=== PATIENT | female | born 1985 | race Caucasian/White ===

== ENCOUNTER → 2017-03-12 | Outpatient (CLI) | payer MEDICAID ==
[~2017-03-12] MED LIST: AMOXICILLIN 50500 MG PO; BACTRIM DS 8001 TA1 PO; BACTRIM DS 8001 TAB PO; BUPRENORPHINE HY8 MG SL; BUTRANS10 MCG/HR TD; CIPRO 500MG TA500 MG PO; CIPROFLOXACIN500 MG PO; FLINTSTONES COM1 CTB PO; FLINTSTONES1 EACH PO; HYDROCODONE1 TABLET PO; IBUPROFEN200 MG PO; KEFLEX 500MG.500 MG PO; LORTAB 5/500 501 TAB PO; MACROBID100 M3 PO; METROGEL VA; MOTRIN 600MG.600 MG PO; NOMEDS; NOMEDS *; PAMPRIN OR; PHENERGAN 25MG.25 M1 PO; PHENERGAN25 M3 PO; PREDNISONE 10MG10 MG PO; PYRIDIUM 200MG200 MG PO; PYRIDIUM100 M2 PO; PYRIDIUM200 M2 PO; SEPTRA DS 800 M1 TAB PO; SUBOXONE 8 MG-21 TAB SL; SULFACETAMIDE S15 M1 OP; SULFAMETHOXAZOL1 TA6 PO; TYLENOL W/CODEI1 TA2 PO; TYLENOL325 MG PO; ULTRAM 50 MG TA50 MG PO; UTIRA-C TABLET1 TAB PO; VICODIN 5/500 T1 TAB PO; VOLTAREN75 MG PO; ZANTAC 150150 MG OR; ZOFRAN ODT4 MG PO; Zofran4 MG PO
--- NOTE | 2017-03-12 18:05 | RADIOLOGY REPORT PS360 ---
US PREG COMP: INDICATION: Anatomy scan ANATOMY OB US ORDERING PHYSICIAN: Yoni Smith MD PATIENT AGE: 31 years TECHNIQUE: ultrasound transabdominal scanning. COMPARISON: No previous relevant studies. FINDINGS: Single viable intrauterine gestation. Cephalic position. Placenta: Anterior placenta grade 1. No previa or abruption There is average amount fluid. The cervix appears satisfactory. Closed and measuring 3 cm in length. Complete survey performed and was unremarkable on the submitted images as in PACS. No discrete anomalies identified on survey imaging by technologist. Active fetus. Three-vessel cord with satisfactory umbilical cord insertion. 4- chamber heart noted. Survey of brain & ventricles. Face and neck survey unremarkable. Diaphragm and chest views unremarkable. Abdomen: Both kidneys noted and unremarkable. Stomach noted and satisfactory. Spine: Survey of the spine satisfactory with no anomalies identified nor imaged. Both arms and legs noted. Amniotic Fluid: Adequate. Maternal adnexa: No significant findings. Measurements: Average ultrasound age 20 weeks 4 days. Gestational Age 20 weeks 1 day. Estimated due date by ultrasound age 207/26/2017. Estimated weight 355 grams. 64 percentile BPD = 20 weeks 6 days OFD = 20 weeks 6 days HC = 20 weeks 1 day AC = 21 weeks 1 day FL = 19 weeks 6 days Heart Rate = not documented Cerebellum = 21 weeks 0 days Humerus = 20 weeks 3 days HC/AC is 1.10. CI is 79%. FL/BPD is 64%. FL/AC is 20%. IMPRESSION: There is a single live fetus in the cephalic presentation. No obvious anomalies. Average ultrasound age is 20 weeks 4 days. Please see above for detail.
== END ==
LOC: RAD 14:43
DX: Z36 Encounter for antenatal screening of mother (principal)

== ENCOUNTER → 2017-05-10 | Outpatient (CLI) | payer MEDICAID ==
[~2017-05-10] MED LIST changes: +FLINTSTONES CO1 EAC1 PO; +HYDROXYZINE 25M25 MG PO
--- NOTE | 2017-05-10 14:27 | RADIOLOGY REPORT PS360 ---
Biophysical profile US BIOPHYSICAL PROFILE: SD ratio INDICATION: DECREASED MOVEMENT ORDERING PHYSICIAN: Yoni Smith MD PATIENT AGE: 31 years TECHNIQUE: ultrasound transabdominal scanning. COMPARISON: 03/12/2017 FINDINGS: Limited scan for biophysical profile: Single viable intrauterine gestation. In Cephalic position Currently. Placenta: Anterior placenta grade 1. The cervix appears satisfactory. Closed and measuring 2.66 in length. Heart rate 102 bpm with raising included.. Cine loop included demonstrates four-chamber heart . The diaphragm identified Adequate amniotic fluid. . MARY = 13.22. Largest amniotic fluid pocket measuring 5.77 cm at the right lower quadrant BIOPHYSICAL PROFILE 8 of possible 8 points. movement and breathing observed 2+ scoring for each category: movement, tone, amniotic fluid, breathing. SD RATIO = 3.2 RI = 0.68Humerus = 21 weeks 4 days IMPRESSION: 8 of 8 points on Biophysical Profile. Cephalic position. Anterior placenta Adequate amniotic fluid with MARY = 13.22.
== END ==
LOC: RAD 13:00
DX: O36.8131 Decreased fetal movements, third trimester, fetus 1 (principal)

== ENCOUNTER 2017-05-14 19:41 | Outpatient (CLI) | payer MEDICAID ==
[~2017-05-14] VITALS: Ht 160 cm; Wt 58.1 kg
[~2017-05-14 19:41] MED LIST changes: -FLINTSTONES CO1 EAC1 PO; -HYDROXYZINE 25M25 MG PO
[2017-05-14 20:05] VITALS: BP 104/67
[2017-05-14] MEDS ORDERED: FLINTSTONES CO1 EAC1 PO (20:19)
[2017-05-14 21:01] LABS: URINE BILIRUBIN - DIPSTICK NEGATIVE (NEG); URINE BLOOD NEGATIVE (NEG)
[2017-05-14 21:27] LABS: AMPHETAMINES/METAMPHETAMINES NEGATIVE ng/mL (<1000)
--- NOTE | 2017-05-15 07:02 | RADIOLOGY REPORT PS360 ---
US PREG [id number] HISTORY: DECREASED MOVEMENT ORDERING PHYSICIAN: Chuy Covarrubias MD PATIENT AGE: 31 years COMPARISON: 05/10/2017 FINDINGS: Limited images submitted show no movement nor heart tones. IMPRESSION: Intrauterine demise
--- NOTE | 2017-05-15 07:02 | RADIOLOGY REPORT PS360 ---
US PREG [id number] HISTORY: DECREASED MOVEMENT ORDERING PHYSICIAN: Chuy Covarrubias MD PATIENT AGE: 31 years COMPARISON: 05/10/2017 FINDINGS: Limited images submitted show no movement nor heart tones. IMPRESSION: Intrauterine demise
[2017-05-20 06:35] LABS: Buprenorphine Positive (.); Norbuprenorphine Positive (.)
== END 2017-05-14 22:40 | disposition home or self-care (01) ==
LOC: OB 19:41 → OBOUT 19:41
PROVIDERS: Obstetrics & Gynecology
DX: O26.93 Pregnancy related conditions, unspecified, third trimester (principal); Z3A.29 29 weeks gestation of pregnancy; R10.2 Pelvic and perineal pain

== ENCOUNTER 2017-05-17 02:27 | Inpatient (IN) | payer MEDICAID ==
[~2017-05-17] VITALS: Ht 157.5 cm; Wt 57.3 kg
[~2017-05-17 02:27] MED LIST changes: +FLINTSTONES CO1 EAC1 PO
--- OUTSIDE RECORDS SUMMARY | 2017-05-17 02:34 | External Medical Summary Rpt | CCD ---
Author Author , MIRIAM Organization MIRIAM Address Unknown Phone [email or web address] Care Team Providers Care Service Representative Name Role Phone [facility] Unavailable Unavailable PHYSICIANS, [facility] Hernandez Downs MD, Unavailable Unavailable Hernandez Downs MD [facility] Unavailable Unavailable MEDICAL CTR, [facility] Unavailable Unavailable HOSPITAL, [facility] DANO ROSHNI, DANO Unavailable Unavailable ROSHNI PHYLICIA SANDERSON, Unavailable Unavailable [facility] Unavailable Unavailable [facility] BASIL ADHIKARI MD, Unavailable Unavailable BASIL ADHIKARI MD [facility] Unavailable Unavailable [facility], [facility]available [facility]available INC, [facility] Unavailable Unavailable [facility] Unavailable GROUP PS, [facility] Un[facility] Unavailable [facility], [facility] Unavailable Unavailable MEDICAL G, [facility], [facility] Unavailable Unavailable [facility]INGS, [facility] Tina Harris MD, Unavailable Unavailable Tina Harris MD, MD LABS, MD LABS Unavailable Unavailable [facility] Unavailable [facility]available [facility], [facility] WINTER OWEN MD, Unavailable Unavailable WINTER OWEN MD [facility] Unavailable Unavailable [facility], Unavailable Unavailable [facility], [facility] Un[facility], [facility] Unavailable Un[facility], [facility] SURINDER SMITH, Unavailable Unavailable SURINDER SMITH [facility] Un[facility] Un[facility], [facility] Unavailable Unavailable [facility] Un[facility] [facility] Purpose Continuity of Care Document - 07-15-2007 through 2016 Problems Code Diagnosis DOS Provider Status [id number] DRUG USE 04-10-2017 [facility] COMPLICATIN PHYSICIANS G GROUP UNS TRIMESTER Z3480 ENC 04-10-2017 [facility] SUPERVISION PHYSICIANS OTH NORMAL GROUP PREG UNS TRIMESTER Z36 ENCOUNTER 03-12-2017 [place] [facility] SCREENING OF MOTHER Z3A20 20 WEEKS 03-12-2017 [place] [facility]ATION [facility]ICAL OF IMAGING ASS Z113 ENCOUNTER 01-08-2017 [facility] S[facility]EN [facility] INFECTIONS SEXL MODE TRANSMISSN Z3481 ENC 01-08-2017 [facility] SUPERVISION [facility] OTH NORMAL 1 TRIMESTER N898 OTHER 01-02-2017 [facility] SPECIFIED [facility]YSICIANS, NONINFLAMMA PLLC TORY DISORDERS VAGINA O2691 01-02-2017 [facility] CONDITIONS INC UNS 1ST TRIMESTER R102 PELVIC AND 01-02-2017 [facility] PERINEAL PHYSICIANS, PAIN PLLC Z3A11 11 WEEKS 01-02-2017 [facility] GESTATION [facility] OF INC Z720 TOBACCO USE 01-02-2017 [facility] INC Q07077 UTERINE 12-14-2016 [facility] SIZE-DATE [facility] DISCREPANCY INC FIRST TRIMESTER Z3A01 LESS THAN 8 12-14-2016 [place] [facility] IM[facility] OF C88321 OTHER SPEC 12-13-2016 [facility] PHYSICIANS RELATED GROUP COND 1ST TRIMESTER O9989 OTH DZ & 12-13-2016 [facility] COND COMP PHYSICIANS, PREG PLLC CHILDBIRTH PUERPERIUM R55 SYNCOPE AND 12-13-2016 [facility] COLLAPSE PHYSICIANS, PLLC R110 NAUSEA 12-08-2016 [facility], PLLC R51 HEADACHE 12-08-2016 [facility], [facility] Z32.01 ENCOUNTER 12-03-2016 FOR TEST, RESULT POSITIVE T81048Q LACERATION 12-01-2016 [facility] W/O FOREIGN [facility] BODY RT INC FOOT INITIAL ENC Z3201 ENCOUNTER 11-28-2016 [place] [facility] TEST RESULT POSITIVE B070 PLANTAR 11-02-2016 [facility] WART PHYSICIANS GROUP B370 CANDIDAL 11-02-2016 [facility] STOMATITIS PHYSICIANS GROUP K029 DENTAL 10-13-2016 [facility] UNSPECIFIED INC K047 PERIAPICAL 10-13-2016 [facility] ABSCESS PHYSICIANS, WITHOUT PLLC SINUS Y43228 AGGRESSIVE 10-13-2016 [facility] PERIODONTIT [facility] IS INC LOCALIZED UNSPEC SEV N3000 ACUTE 09-30-2016 [facility] CYSTITIS PHYSICIANS, WITHOUT PLLC HEMATURIA N390 URINARY 09-30-2016 [facility] TRACT PHYSICIANS, INFECTION PLLC SITE NOT SPECIFIED B9620 UNS E COLI 07-23-2016 [facility] E. COLI PHYSICIANS, CAUSE DZ PLLC CLASS ELSEWHERE B1920 UNS VIRAL 03-26-2016 [facility] HEPATITIS C HEALTH WITHOUT MEDICAL G HEPATIC COMA N3020 OTHER 03-26-2016 [facility] CHRONIC HEALTH CYSTITIS MEDICAL G WITHOUT HEMATURIA N341 NONSPECIFIC 03-26-2016 [facility] URETHRITIS HEALTH MEDICAL G N3644 MUSCULAR 03-26-2016 [facility] DISORDERS HEALTH OF URETHRA MEDICAL G B379 CANDIDIASIS 02-23-2016 [facility] UNSPECIFIED LAB LLC N281 CYST OF 02-21-2016 [facility] N3090 CYSTITIS 02-21-2016 [place] UNSPECIFIED MEDICAL WITHOUT IMAGING ASS HEMATURIA R1084 GENERALIZED 12-18-2015 [facility] ABDOMINAL N [facility]ERGENCY PAIN SERV R197 DIARRHEA 12-18-2015 [facility] UNSPECIFIED N EMERGENCY SERV Z5181 ENCOUNTER 12-14-2015 MD LAB[facility] FOR THERAPEUTIC DRUG LEVEL MONITORING M46514 OTHER LONG 12-14-2015 MD LABS TERM CURRENT DRUG THERAPY B182 CHRONIC 12-07-2015 DANO ROSHNI VIRAL HEPATITIS C Z392 ENCOUNTER 11-16-2015 LAB [facility] FOR ROUTINE [facility] FOLLOW-UP O623 PRECIPITATE 09-28-2015 [facility] LABOR [facility] [place] O80 ENCOUNTER 09-28-2015 [place] [facility] FULL-TERM GROUP PS UNCOMPLICAT ED DELIVERY Z370 SINGLE LIVE 09-28-2015 [place] [facility] PS Z3A38 38 WEEKS 09-28-2015 [facility] GESTATION [facility] OF HEALTH CENTE C08411 SUP PREG 09-26-2015 [facility] W/OTH POOR [facility] REPRODUCTIV HEALTH E/OB HX 1ST CENTE TRI R300 DYSURIA 09-26-2015 [facility] Z3483 ENC 09-26-2015 LAB [facility] SUPERVISION [facility] OT NORMAL HOLDINGS 3 TRIMESTER Z3A37 37 WEEKS 09-26-2015 LAB [facility] GESTATION [facility] OF HOLDINGS O218 OTHER 09-23-2015 [facility] VOMITING [facility] COMPLICATIN HEALTH G CENTE O2393 UNS 09-23-2015 [facility] GENITOURINA [facility] RY TRACT HEALTH INF PREG CENTE THIRD TRIMESTER O6003 09-23-2015 [facility] LABOR [facility] WITHOUT HEALTH DELIVERY CENTE THIRD TRIMESTER K529 NONINFECTIV 09-22-2015 [facility] ITIS & COLITIS UNS O2340 UNS INF 09-22-2015 [facility] URINARY REGIONAL TRACT IN MEDICAL CTR UNS TRIMESTER O2693 09-22-2015 [facility] RELATED REG[facility]AL CONDITIONS MEDICAL CTR UNS 3RD TRIMESTER O4703 FALSE LABOR 09-22-2015 [facility] BEFORE [facility] REGIONAL CMPLETE MEDICAL CTR WEEKS GEST 3RD TRI [id number] OLIGOHYDRAM 09-19-2015 [facility] NIOS REGIONAL UNSPECIFIED MEDICAL CTR TRIMESTER NA/UNS [id number] OLIGOHYDRAM 09-19-2015 [facility] TRIMESTER HEALTH NA/UNS CENTE Z3A36 36 WEEKS 09-19-2015 [facility]ATION [facility] CENTE F533507 DECREASED 09-14-2015 [facility] MOVEMENTS MEDICAL CTR UNS TRIMESTER NA/UNS O41503 SUP PREG 09-08-2015 [facility] W/OTH POOR REGIONAL REPRODUCTIV MEDICAL CTR E/OB HX UNS TRI Z3A35 35 WEEKS 09-08-2015 [facility] GESTATION [facility] CENTE Z13705 DRUG USE 08-29-2015 [facility] COMPLICATIN PHYSICIANS G GROUP THIRD TRIMESTER M20833 SUP PREG 08-24-2015 [facility] W/OTH POOR SERV REPRODUCTIV FOUNDATION E/OB HX THIRD TRI Z3A33 33 WEEKS 08-24-2015 [facility] GESTATION SERV OF FOUNDATION D6861 ANTIPHOSPHO 07-27-2015 [facility] MEDICAL LIPID SERV SYNDROME FOUNDATION Z3A29 29 WEEKS 07-27-2015 [facility] GESTATION SERV OF FOUNDATION D689 COAGULATION 07-24-2015 [facility] DEFECT N EMERGENCY UNSPECIFIED PHYS G55085 OTH DZ 07-24-2015 [facility] BLOOD & BFO N EMERGENCY IMMUN MECH PHYS COMP PREG 3RD TRI Z3A32 32 WEEKS 07-24-2015 [facility] GESTATION N EMERGENCY OF PHYS C604152 DECREASED 06-25-2015 [facility] MOVEMENTS INC SECOND TRI NA/UNS Z3A24 24 WEEKS 06-25-2015 [facility] GESTATION MEM HOS[facility] OF INC O471 FALSE LABOR 05-20-2015 BASIL Pineda AT/AFTER ZEYNEP HUANG 37 COMPLETED WEEKS GEST K65957 ATYP SQ 05-04-2015 [facility] HOSPI SIGNIFICANC E CYTOL SMER CERV Z779 OTH CONTACT 05-04-2015 [facility] SUSPECTED HOSPI EXPOSURES [facility] 72097 UNSPECIFIED 03-08-2015 [facility] N 5990 URINARY 03-06-2015 [facility] TRACT [facility] INFECTION SITE NOT SPECIFIED 59365 MILD 03-06-2015 [facility] HYPEREMESIS CARE [facility] PHYSICIANS ANTEPARTUM 62479 INFECTIONS 03-06-2015 [facility] GENITOURINA RY TRACT ANTEPARTUM 04721 TOB USE D/O 03-06-2015 [facility] COMP PG EAST /PP ANTEPARTM COND/COMP 03259 TRICHOMONAL 02-17-2015 [facility] VULVOVAGINI TIS V221 SUPERVISION 02-17-2015 [facility] OF OTHER LLC NORMAL V745 SCREENING 02-17-2015 [facility] EXAMINATION LLC FOR VENEREAL DISEASE 83311 ABDOMINAL 02-07-2015 [facility] PAIN OTHER MEM HOS[facility] SPECIFIED INC SITE 31304 OTH&UNS ABN 02-04-2015 [facility] ORGN&PELVIS IMAGING ASS ANTPRTM COND/COMPL 97944 ABDOMINAL 01-27-2015 [facility] PAIN, MEM [facility]OS[facility] GENERALIZED INC 1120 CANDIDIASIS 04-02-2014 [facility] 6202 OTHER AND 03-08-2014 BAS[facility] Pineda UNSPECIFIED ZEYNEP HUANG OVARIAN CYST 6268 OTH D/O 03-08-2014 BAS[facility] Pineda MENSTRUATIO ZEYNEP HUANG N&OTH ABN BLEED FE GNT TRACT V7231 ROUTINE 03-08-2014 BAS[facility] Pineda GYNECOLOGIC ZEYNEP HUANG AL EXAMINATION 305.1 305.1 05-15-2013 [place] TOBACCO USE [facility] 599.0 599.0 URIN 05-15-2013 [place] TRACT [place] [facility] NOS 780.4 780.4 03-22-2013 [place] DIZZINESS, [facility] VERTIGO 784.0 784.0 03-22-2013 [place] HEADACHE [facility] 845.00 845.00 03-07-2013 [place] SPRAIN OF [place] ANKLE [facility] E849.8 E849.8 03-07-2013 [place] ACCIDENT IN [facility] E927.0 E927.0 03-07-2013 [place] OVEREXERTIO [facility] FROM [facility] SUDDEN STRENUOUS MOVEMENT V64.2 V64.2 NO 12-23-2012 [place] PROC[facility] 6253 DYSMENORRHE 08-11-2007 [facility] [place] 6259 UNSPEC 08-11-2007 [facility]OM[facility] SYMPTOM HEALTH ASSOC CLINIC OF W/FEMALE [place] [facility]ITAL [facility] ORGANS 6264 IRREGULAR 08-04-2007 WOMEN'S MENSTRUAL HEALTH CYCLE [facility] [place] [facility] V692 PROBLEMS 08-04-2007 WOMEN'S RELATED TO HEALTH HIGH-RISK CLINIC OF SEXUAL [place] [facility] 58951 NONSPEC 07-21-2007 [facility] ABNORM PAP [place] INC CERV UNSATISFACT ORY CYTOLOGY V251 ENCOUNTER 07-21-2007 WOMEN'S INSERT/BIN HEALTH EB IU CLINIC OF CONTRACEPTI [place] VE DEVICE [facility] 86321 PAP SMER 07-15-2007 WOMEN'S CERV HEALTH W/ATYPICAL CLINIC OF SQUAMOUS [place] CELLS UNDET [facility] 18325 CERV HIGH 07-15-2007 WOMEN'S RISK HUMAN HEALTH PAPILLOMAVI CLIN[facility] OF [place] DNA [place] TEST POS [facility] V242 ROUTINE 07-15-2007 [facility] [place] INC FOLLOW-UP K52.9 NONINFECTIV E GASTROENTER ITIS AND COLITIS, UNSPECIFIED N39.0 URINARY TRACT INFECTION, SITE NOT SPECIFIED N89.8 OTHER SPECIFIED NONINFLAMMA TORY DISORDERS OF VAGINA R10.2 PELVIC AND PERINEAL PAIN R55 SYNCOPE AND COLLAPSE Z33.1 STATE, INCIDENTAL Z34.90 ENCNTR FOR SUPRVSN OF NORMAL , UNSP, UNSP TRIMESTER Allergies, Adverse Reactions, Alerts Type Allergy to substance Adverse Reaction to Substance Substance Reaction Severity NO KNOWN ALLERGIES Unknown Unknown Medications Na ND Rx Da Fi Fi Am Da Di Ph RX Ph St me C No te ll ll ou ys ag ar # ys at rm s nt no ma ic us Or Da si cy ia de te s n re d EN 00 10 11 8. 20 00 EA Ac OX 95 -1 -[address] ti AP 51 5- 7- 0 00 SI ve AR 00 20 20 50 DE IN 41 17 17 42 0 62 PH 40 AR MA MG CY /0 .4 OF CY ML NT HI SY AN R A IN C EN 00 10 11 4. 10 00 EA Ac OX 95 -0 -[address] ti AP 51 6- 0- 0 00 SI ve AR 00 20 20 50 DE IN 41 17 17 42 0 62 PH 40 AR MA MG CY /0 .4 OF CY ML NT HI SY AN R A IN C EN 00 09 10 4. 10 00 EA Ac OX 95 -2 -[address] ti AP 51 5- 7- 0 00 SI ve AR 00 20 20 50 DE IN 41 17 17 28 0 60 PH 40 AR MA MG CY /0 .4 OF CY ML NT HI SY AN R A IN C FE 57 09 10 30 30 00 EA Ac RR 66 -1 -[address] ti OU 40 9- 0- 00 00 SI ve S 07 20 20 50 DE ABREU 01 17 17 22 LF 0 39 PH AT AR E MA 32 CY 5 MG OF CY TA NT BL HI ET AN A IN C TE 51 08 09 20 3 00 EA Ac RC 67 -2 -[address] ti ON 21 2- 2- 00 00 SI ve AZ 30 20 20 49 DE OL 20 17 17 88 E 0 82 PH 0. AR 8% MA CY CR EA OF M CY NT HI AN A IN C NE 65 06 07 14 4 00 EA Ac OM 16 -1 -[address] ti ET 20 8- 1- 00 00 SI ve FOSS 52 20 20 49 DE ZI 11 17 17 16 NE 1 65 PH AR 25 MA CY MG OF TA CY BL NT ET HI AN A IN C NY 00 05 06 [address] 60 -1 -[address] ti AT 31 2- 6- 00 00 SI ve IN 48 20 20 0 48 DE 15 17 17 72 10 8 86 PH 0, AR 00 MA 0 CY UN IT OF /M CY L NT ABREU HI SP AN A IN C BU 00 04 05 3. 1 00 CL Ac NE 09 -1 -1 00 00 IN ti EN 35 7- 9- 0 00 IC ve OR 72 20 20 42 PH 15 17 17 79 PH IN 6 70 AR -N MA AL CY OX ON 8- 2 MG SL BU 00 04 05 3. 1 00 CL Ac NE 09 -0 -1 00 00 IN ti EN 35 7- 2- 0 00 IC ve OR 72 20 20 42 PH 15 17 17 72 PH IN 6 09 AR -N MA AL CY OX ON 8- 2 MG SL ABREU 53 04 05 20 10 00 CL Ac LF 74 -1 -1 .0 00 IN ti AM 60 0- 2- 00 00 IC ve ET 27 20 20 42 HO 20 17 17 75 PH XA 5 65 AR ZO MA LE CY -T MP DS TA BL ET CI 16 01 03 14 7 00 EA Ac NE 71 -3 -[address] ti OF 40 1- 3- 00 00 SI ve LO 65 20 20 47 DE XA 20 17 17 43 CI 4 63 PH N AR HC MA L CY 50 0 OF MG CY NT TA HI B AN A IN C PH 42 01 03 10 3 00 EA Ac EN 93 -3 -[address] ti AZ 70 1- 3- 00 00 SI ve OP 70 20 20 47 DE YR 21 17 17 43 ID 0 62 PH IN AR E MA 20 CY 0 MG OF CY TA NT B HI AN A IN C SO 00 09 0 No DI 40 -2 UM 97 9- Lo 98 20 ng CH 30 13 er LO 9 RI Ac DE ti ve 0. 9% SO ALIA TI ON ON 00 09 0 No DA 64 -2 NS 16 9- Lo ET 08 20 ng RO 02 13 er N 5 HC Ac L ti 4 ve MG /2 ML AL BU 55 09 0 No TO 39 -2 RP 00 9- Lo FOSS 18 20 ng NO 40 13 er L 1 2 Ac MG ti /M ve L AL KE 00 09 0 No TO 40 -1 RO 93 4- Lo LA 79 20 ng C 50 13 er 30 1 Ac MG ti /M ve L AL 00 02 03 00 20 4 CL 16 No Ac 40 -1 -2 .0 IN 46 t ti 60 1- 6- 00 IC 17 Av ve 35 20 20 ai 70 08 08 PH la 5 AR bl MA e CY 00 02 03 00 60 30 CL 16 No Ac 14 -1 -2 .0 IN 46 t ti 39 1- 6- 00 IC 14 Av ve 90 20 20 ai 80 08 08 PH la 1 AR bl MA e CY 00 02 03 00 20 4 CL 16 No Ac 40 -1 -2 .0 IN 51 t ti 60 8- 6- 00 IC 41 Av ve 35 20 20 ai 70 08 08 PH la 5 AR bl MA e CY DO 00 02 03 00 28 14 CL 16 No Ac XY 59 -1 -2 .0 IN 46 t ti CY 15 1- 6- 00 IC 15 Av ve CL 44 20 20 ai IN 00 08 08 PH la E 5 AR bl HY MA e CL CY AT E 10 0 MG CA P [place] 50 01 03 00 1. 1 TH 19 No Ac RE 41 -1 -2 00 ER 85 t ti NA 90 1- 4- 0 A 82 Av ve 42 20 20 CO 1 ai SY [address] 1 IN bl EM C e Vital Signs 03-22-2013 15:42 Name Value Interpretat Reference Comment ion Range BP 88 mm[Hg] Diastolic BP Systolic 126 mm[Hg] Heart 60 /min Rate/Pulse O2% 100 % Respiratory 18 /min Rate 03-22-2013 14:00 Name Value Interpretat Reference Comment ion Range BP 89 mm[Hg] Diastolic BP Systolic 142 mm[Hg] Heart 60 /min Rate/Pulse O2% 100 % Respiratory 18 /min Rate 03-07-2013 11:46 Name Value Interpretat Reference Comment ion Range Body 98.3 [degF] Temperature BP 69 mm[Hg] Diastolic BP Systolic 114 mm[Hg] Heart 72 /min Rate/Pulse O2% 97 % Respiratory 18 /min Rate 03-07-2013 11:17 Name Value Interpretat Reference Comment ion Range BP 67 mm[Hg] Diastolic BP Systolic 113 mm[Hg] Heart 70 /min Rate/Pulse O2% 97 % Respiratory 20 /min Rate Results Labs Lab Lab Date Result Refere Interp Status Commen Order Detail nces retati t Range on Urine 9-analyte drugs of abuse screening (05-14-2017 19:50) Comment: Collected by nurse? Y Comment: Hold specimen in OE? N Comment: Positive urine drug screen samples are stored for 7 days. Comment: Contact the Lab if confirmation of positives is needed. Urine NEGATIV <1000 complet ampheta 017 E ed mine 19:50 NEGATIV screeni E L ng test ng/mL Serum = 200 complet or 017 NEGATIV ng/mL ed plasma 19:50 E ng/mL benzodi azepine s measure m Methado = <300 complet ne 017 NEGATIV ed measure 19:50 E ng/mL ment (mass/v olume) Opiates = <300 complet 017 NEGATIV ed measure 19:50 E ng/mL ment (mass/v olume) Phencyc = <25 complet lidine 017 NEGATIV ed measure 19:50 E ng/mL ment (mass/v olume) 11-hydr NEGATIV <50 complet oxy 017 E ed delta-9 19:50 NEGATIV E L tetrahy ng/mL drocann abinol Urine = <200 complet barbitu 017 NEGATIV ed rates 19:50 E ng/mL measure ment by screen Cocaine = <300 complet 017 NEGATIV ed measure 19:50 E ng/g ment (mass/v olume) Urinalysis with microscopy (05-14-2017 19:50) Comment: Collected by nurse? Y Comment: Hold specimen in OE? N Urine CLEAR CLEAR complet appeara 017 CLEAR L ed nce 19:50 determi nation Amorpho 1+ 1+ L NONE complet us 017 ed sedimen 19:50 t detecti on in urine se Bacteri 1+ 1+ L O complet a 017 ed detecti 19:50 on in urine sedimen t by Urine NEGATIV NEG complet total 017 E ed bilirub 19:50 NEGATIV in E L detecti on by test Urine NEGATIV NEG complet blood 017 E ed detecti 19:50 NEGATIV on E L Urine DK YELLOW complet color 017 YELLOW ed 19:50 DK YELLOW L Glucose = NEG complet ur 017 NEGATIV ed test 19:50 E strip Urine NEGATIV NEG complet ketones 017 E ed 19:50 NEGATIV detecti E L on by mg/dL automat ed merlyn Mucus NEGATIV NEG complet detecti 017 E ed on in 19:50 NEGATIV urine E L sedimen t by lig Urine NEGATIV NEG complet nitrite 017 E ed 19:50 NEGATIV detecti E L on by test strip Urine 2 = 7.0 5.0-8.5 complet pH 017 ed 19:50 Urine 05-14- = NEG complet protein 017 NEGATIV ed 19:50 E mg/dL measure ment by automat ed t Erythro 05-14-2 NONE 0 complet cytes 017 NONE L ed detecti 19:50 rbc/hpf on in urine sedimen t Urine 05-14-2 = 1.025 1.005-1 complet specifi 017 .030 ed c 19:50 gravity measure ment Squ[place]ou 05-14-2 5-10 0-5 complet s 017 5-10 L ed epithel 19:50 #/hpf ial cells detecti on in u Urine 1.0 1.0 NEG complet urobili 017 L ed nogen 19:50 E.U./dL detecti on by test str Urine 3 - 5 O complet leukocy 017 wbc/hpf ed merlyn 19:50 count (number /volume ) Urinalysis dipstick W Reflex Microscopic panel in Urine (05-14-2017 19:50) Amorpho 1+ NONE complet us 017 ed sedimen 19:50 t [Presen ce] in Urine sedimen t by Light microsc opy Bacteri 1+ O complet a 017 ed [Presen 19:50 ce] in Urine sedimen t by Light microsc opy Erythro NONE 0 complet cytes 017 ed [Presen 19:50 ce] in Urine sedimen t by Light microsc opy Epithel 5-10 0#/hp complet ial 017 f - ed cells.s 19:50 5#/hp quamous f [Presen ce] in Urine sedimen t by Microsc opy high power field Leukocy 3-5 O complet merlyn 017 wbc/hpf ed [#/volu 19:50 me] in Urine Drugs identified in Urine by Screen method (05-14-2017 19:50) Ampheta NEGATIV <1000 complet mine 017 E ed [Presen 19:50 ce] in Urine by Screen method NEGATIV <50 complet oxy 017 E ed delta-9 19:50 tetrahy drocann abinol [Presen ce] in Unspeci fied specime n Urinalysis dipstick W Reflex Microscopic panel in Urine (05-14-2017 19:50) Appeara CLEAR CLEAR complet nce of 017 ed Urine 19:50 Bilirub NEGATIV NEG complet in 017 E ed [Presen 19:50 ce] in Urine by Test strip Erythro NEGATIV NEG complet cytes 017 E ed [Presen 19:50 ce] in Urine Color DK YELLOW complet of 017 YELLOW ed Urine 19:50 Ketones NEGATIV NEG complet 017 E ed [Presen 19:50 ce] in Urine by Automat ed test strip Mucus NEGATIV NEG complet [Presen 017 E ed ce] in 19:50 Urine sedimen t by Light microsc opy Nitrite NEGATIV NEG complet 017 E ed [Presen 19:50 ce] in Urine by Test strip Urobili 05-14- 1.0 NEG complet nogen 017 ed [Presen 19:50 ce] in Urine by Test strip Urinalysis dipstick W Reflex Microscopic panel in Urine (01-02-2017 13:40) Bacteri 2+ O complet a 017 ed [Presen 13:40 ce] in Urine sedimen t by Light microsc opy Epithel 5-10 0#/hp complet ial 017 f - ed cells.s 13:40 5#/hp quamous f [Presen ce] in Urine sedimen t by Microsc opy high power field Leukocy 5-10 O complet merlyn 017 wbc/hpf ed [#/volu 13:40 me] in Urine Urinalysis dipstick W Reflex Microscopic panel in Urine (01-02-2017 13:40) Appeara CLEAR CLEAR complet nce of 017 ed Urine 13:40 Bilirub NEGATIV NEG complet in 017 E ed [Presen 13:40 ce] in Urine by Test strip Erythro NEGATIV NEG complet cytes 017 E ed [Presen 13:40 ce] in Urine Color YELLOW YELLOW complet of 017 ed Urine 13:40 Ketones NEGATIV NEG complet 017 E ed [Presen 13:40 ce] in Urine by Automat ed test strip Mucus TRACE NEG Abnorma complet [Presen 017 l ed ce] in 13:40 Urine sedimen t by Light microsc opy Nitrite NEGATIV NEG complet 017 E ed [Presen 13:40 ce] in Urine by Test strip Urobili 0.2 NEG complet nogen 017 ed [Presen 13:40 ce] in Urine by Test strip Urinalysis dipstick W Reflex Microscopic panel in Urine (12-13-2016 15:40) Bacteri 2+ O complet a 017 ed [Presen 15:40 ce] in Urine sedimen t by Light microsc opy Mucus 12-13-2 2+ OCC complet [Presen 017 ed ce] in 15:40 Urine sedimen t by Light microsc opy Epithel 12-13-2 5-10 0#/hp complet ial 017 f - ed cells.s 15:40 5#/hp quamous f [Presen ce] in Urine sedimen t by Microsc opy high power field Leukocy 12-13- 5-10 O complet merlyn 017 wbc/hpf ed [#/volu 15:40 me] in Urine Urinalysis dipstick W Reflex Microscopic panel in Urine (12-13-2016 15:40) Appeara CLEAR CLEAR complet nce of 017 ed Urine 15:40 Bilirub NEGATIV NEG complet in 017 E ed [Presen 15:40 ce] in Urine by Test strip Erythro NEGATIV NEG complet cytes 017 E ed [Presen 15:40 ce] in Urine Color YELLOW YELLOW complet of 017 ed Urine 15:40 Ketones NEGATIV NEG complet 017 E ed [Presen 15:40 ce] in Urine by Automat ed test strip Mucus 1+ NEG Abnorma complet [Presen 017 l ed ce] in 15:40 Urine sedimen t by Light microsc opy Nitrite NEGATIV NEG complet 017 E ed [Presen 15:40 ce] in Urine by Test strip Urobili 12-13-2 1.0 NEG complet nogen 017 ed [Presen 15:40 ce] in Urine by Test strip Drugs identified in Urine by Screen method (12-13-2016 15:40) Ampheta 12-13-2 NEGATIV <1000 complet mine 017 E ed [Presen 15:40 ce] in Urine by Screen method 11-Hydr 12-13- NEGATIV <50 complet oxy 017 E ed delta-9 15:40 tetrahy drocann abinol [Presen ce] in Unspeci fied specime n Blood group antibody screen [Presence] in Serum or Plasma (12-04-2016 15:16) Blood NEGATIV NEGATIV complet group 017 E E ed antibod 15:16 y screen [Presen ce] in Serum or Plasma Rh [Type] in Blood (12-04-2016 15:16) Rh POSITIV complet [Type] 017 E ed in 15:16 Blood ABO group [Type] in Blood (12-04-2016 15:16) ABO AB complet group 017 ed [Type] 15:16 in Blood B-HCG Ur Ql (05-15-2013 11:30) B-HCG 05-15-2 NEGATIV NEG complet Ur Ql 013 E ed 11:30 URINALYSIS/COMPLETE (05-15-2013 11:30) URINE 05-15-2 YELLOW YELLOW complet COLOR 013 ed 11:30 URINE 05-15-2 CLOUDY CLEAR complet APPEARA 013 ed NCE 11:30 URINE 05-15-2 NEGATIV NEG complet GLUCOSE 013 E ed - 11:30 DIPSTIC K URINE 05-15-2 1+ NEG complet BILIRUB 013 ed IN - 11:30 DIPSTIC K URINE 05-15-2 TRACE NEG complet KETONE 013 mg/dL ed 11:30 URINE 05-15-2 1.025 1.005-1 complet SPECIFI 013 UNK .030 ed C 11:30 GRAVITY URINE 05-15-2 NEGATIV NEG complet BLOOD 013 E ed 11:30 URINE 05-15-2 6.0 UNK 5.0-8.5 complet PH 013 ed 11:30 URINE 05-15-2 NEGATIV NEG complet PROTEIN 013 E mg/dL ed - 11:30 DIPSTIC K URINE 05-15-2 1.0 NEG complet UROBILI 013 E.U./dL ed NOGEN - 11:30 DIPSTIC K URINE 05-15-2 NEGATIV NEG complet NITRATE 013 E ed - 11:30 DIPSTIC K URINE 05-15-2 2+ NEG complet LEUK 013 ed ESTERAS 11:30 E URINE 11-22-2 5-10 0 complet RBC 013 rbc/hpf ed 11:30 URINE --2 5-10 O complet WBC 013 wbc/hpf ed 11:30 URINE 11-22-2 20-50 0-5 complet SQUAMOU 013 #/hpf ed S CELLS 11:30 URINE 05-15-2 2+ O complet BACTERI 013 ed A 11:30 URINE 05-15-2 2+ OCC complet MUCUS 013 ed 11:30 COMPREHENSIVE METABOLIC PANEL (03-22-2013 13:45) Glucose 118 74-106 complet 013 mg/dL ed Bld-mCn 13:45 c BUN 7 mg/dL 7-18 complet Bld-mCn 013 ed c 13:45 Creat 0.8 0.6-1.0 complet SerPl-m 013 mg/dL ed Cnc 13:45 ESTIMAT 106 50-200 complet ED 013 ML/MIN ed CREATIN 13:45 INE CLEARAN CE GFR 86 59- complet (ESTIMA 013 ML/MIN ed KATHERINE) 13:45 Sodium 139 136-145 complet SerPl-s 013 mmoL/L ed Cnc 13:45 Potassi 3.5 3.5-5.1 complet um 013 mmoL/L ed SerPl-s 13:45 Cnc Chlorid 102 98-107 complet e 013 mmoL/L ed SerPl-s 13:45 Cnc CO2 03-22- 28 21.0-32 complet SerPl-s 013 mmoL/L .0 ed Cnc 13:45 Calcium 8.8 8.5-10. complet 013 mg/dL 1 ed SerPl-m 13:45 Cnc Prot 03-22- 7.4 6.4-8.2 complet SerPl-m 013 gm/dL ed Cnc 13:45 Albumin 03-22-2 3.6 3.4-5.0 complet 013 gm/dL ed SerPl-m 13:45 Cnc Globuli 03-22-2 3.8 1.3-3.2 complet n 013 gm/dL ed Ser-mCn 13:45 c Albumin 03-22-2 0.9 UNK 1.1-1.8 complet /Glob 013 ed SerPl-m 13:45 Rto Bilirub 03-22-2 0.2 0.2-1.0 complet 013 mg/dL ed SerPl-m 13:45 Cnc AST 09-29-2 34 U/L 15-37 complet SerPl-c 013 ed Cnc 13:45 ALT 03-22-2 70 U/L 30-65 complet SerPl-c 013 ed Cnc 13:45 ALP 03-22-2 108 U/L 50-136 complet SerPl-c 013 ed Cnc 13:45 CBC with AUTO DIFF (03-22-2013 13:45) WBC # -29-2 4.5 4.8-10. complet Bld 013 K/MM3 8 ed Auto 13:45 RBC # 29-2 4.44 4.2-5.4 complet Bld 013 M/mm3 ed Auto 13:45 Hgb 03-22-2 14.6 12.2-16 complet Bld-mCn 013 g/dL .2 ed c 13:45 Hct Fr 03-22-2 42.5 % 37.0-47 complet Bld 013 .0 ed 13:45 MCV RBC 03-22-2 95.7 fl 82.2-97 complet 013 .8 ed 13:45 MCH RBC 03-22-2 33.0 pg 27-31.2 complet Qn 013 ed Auto 13:45 MEAN 03-22-2 34.4 31.8-35 complet CORPUSC 013 g/dl .4 ed ULAR 13:45 HGB CONC RDW RBC 03-22-2 14.1 % 11.5-17 complet Auto 013 .5 ed 13:45 Platele -29-2 209 142-424 complet t Bld 013 K/mm3 ed Ql 13:45 Manual MEAN 03-22-2 8.0 fl 7.4-10. complet PLATELE 013 4 ed T 13:45 VOLUME Granulo 03-22-2 38.5 % 37.0-80 complet cytes 013 .0 ed Fr Bld 13:45 Auto LYMPH % 03-22-2 51.0 % 10-50.0 complet 013 ed 13:45 Monocyt -29-2 5.5 % 1.7-9.3 complet es Fr 013 ed Bld 13:45 Auto Eosinop -29-2 4.1 % 0.1-12. complet hil Fr 013 0 ed Bld 13:45 Auto Basophi -29-2 0.9 % 0.1-2.0 complet ls Fr 013 ed Bld 13:45 Auto Granulo -29-2 1.7 1.8-7.8 complet cytes # 013 K/mm3 ed Bld 13:45 Auto Lymphoc --2 2.3 0.7-4.5 complet ytes Fr 013 K/mm3 ed Bld 13:45 Auto Monocyt 29-2 0.3 0.1-1.0 complet es # 013 K/mm3 ed Bld 13:45 Auto Eosinop --2 0.2 0.0-0.4 complet hil # 013 K/mm3 ed Bld 13:45 Auto Basophi 03-22-2 0.0 0-0.2 complet ls # 013 K/MM3 ed Bld 13:45 Auto B-HCG Ur Ql (03-22-2013 13:40) B-HCG 03-22-2 NEGATIV NEG complet Ur Ql 013 E ed 13:40 URINALYSIS/COMPLETE (03-22-2013 13:40) URINE 03-22-2 YELLOW YELLOW complet COLOR 013 ed 13:40 URINE 03-22-2 CLEAR CLEAR complet APPEARA 013 ed NCE 13:40 URINE 03-22-2 NEGATIV NEG complet GLUCOSE 013 E ed - 13:40 DIPSTIC K URINE 03-22-2 NEGATIV NEG complet BILIRUB 013 E ed IN - 13:40 DIPSTIC K URINE 03-22-2 NEGATIV NEG complet KETONE 013 E mg/dL ed 13:40 URINE 03-22-2 1.015 1.005-1 complet SPECIFI 013 UNK .030 ed C 13:40 GRAVITY URINE 03-22-2 NEGATIV NEG complet BLOOD 013 E ed 13:40 URINE 03-22-2 7.0 UNK 5.0-8.5 complet PH 013 ed 13:40 URINE 03-22-2 NEGATIV NEG complet PROTEIN 013 E mg/dL ed - 13:40 DIPSTIC K URINE 03-22-2 0.2 NEG complet UROBILI 013 E.U./dL ed NOGEN - 13:40 DIPSTIC K URINE --2 NEGATIV NEG complet NITRATE 013 E ed - 13:40 DIPSTIC K URINE 03-22-2 NEGATIV NEG complet LEUK 013 E ed ESTERAS 13:40 E URINE 03-22-2 OCC 0 complet RBC 013 rbc/hpf ed 13:40 URINE 03-22-2 3-5 O complet WBC 013 wbc/hpf ed 13:40 URINE 5-10 0-5 complet SQUAMOU 013 #/hpf ed S CELLS 13:40 URINE 2+ O complet BACTERI 013 ed A 13:40 B-HCG Ur Ql (03-07-2013 10:30) B-HCG NEGATIV NEG complet Ur Ql 013 E ed 10:30 CHLAMYDIA AND GONORRHEA TESTING (09-30-2012 15:00) Chlamyd CANCEL complet ia 013 ed trachom 15:00 atis rRNA [Presen ce] in Unspeci fied specime n by Probe & target amplifi cation method Neisser CANCEL complet ia 013 ed gonorrh 15:00 oeae rRNA [Presen ce] in Unspeci fied specime n by Probe & target amplifi cation method REMARKS DUPLICA complet 013 TE ed 15:00 ORDER HL [id number] CHLAMYDIA AND GONORRHEA TESTING (09-30-2012 15:00) Chlamyd NEGATIV complet ia 013 E ed trachom 15:00 atis rRNA [Presen ce] in Unspeci fied specime n by Probe & target amplifi cation method Neisser NEGATIV complet ia 013 E ed gonorrh 15:00 oeae rRNA [Presen ce] in Unspeci fied specime n by Probe & target amplifi cation method CHLAMYDIA AND GONORRHEA TESTING (09-30-2012 15:00) COLLECT NA complet OR 013 ed 15:00 KIT 10-21-12 complet EXPIRAT 013 ed ION 15:00 DATE SYMPTOM NO complet S 013 ed 15:00 CHLAMYDIA AND GONORRHEA TESTING (09-30-2012 15:00) COLLECT M. 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:00 [employer] WORKER ETHNICI WHITE, complet TY 013 NON-HIS ed 15:00 PANIC KIT complet EXPIRAT 013 013 ed ION 15:00 DATE SYMPTOM YES complet S 013 ed 15:00 REASON REVISIT complet FOR 013 /ANNUAL ed REQUEST 15:00 FAMILY PLANNIN G VISIT SPECIME FEMALE complet N 013 ENDOCER ed SOURCE 15:00 VICAL PREGNAN NO complet T 013 ed 15:00 CHART NA complet NUMBER 013 ed 15:00 Chlamyd Pending complet ia 013 ed trachom 15:00 atis rRNA [Presen ce] in Unspeci fied specime n by Probe & target amplifi cation method Neisser Pending complet ia 013 ed gonorrh 15:00 oeae rRNA [Presen ce] in Unspeci fied specime n by Probe & target amplifi cation method Encounters Encounter Start End Date Code Location Performer Type Date [facility] [place] - [address] [facility] [address] [facility] [address] [facility] [address] [facility] [facility] [address] [facility] [facility] [address] [facility] [place] [facility] [address] [facility] [place] [facility] 7 7 [facility] - [address] [facility] [place] - [address] [facility] [place] - [address] [facility] [place] - [address] [facility] [place] - [address] [facility] - [address] [facility] - 6 6 [facility] - 6 6 [facility] - 6 6 [facility] - 6 6 [facility] - 6 6 [facility] [place] - 6 6 [facility] - [address] [facility] - 5 5 [facility] - 5 5 [facility] - 5 5 [facility] [place] - 5 5 [facility] [place] - 5 5 [facility] Emergency VALERIY Downs MD (ER) 3 12:04 3 12:17 [facility] Emergency VALERIY Downs MD (ER) 3 13:58 3 15:42 [facility] Emergency VALERIY OWEN (ER) 3 10:19 3 11:52 [facility] Emergency VALERIY Harris MD (ER) 3 20:19 [facility] [place] - 8 8 [facility]
--- OUTSIDE RECORDS SUMMARY | 2017-05-17 02:34 | External Medical Summary Rpt | CCD ---
Author Author , MIRIAM Organization MIRIAM Address Unknown Phone [email or web address] Care Team Providers Care Shipping Receiving Clerk Name Role Phone [facility] Unavailable Unavailable PHYSICIANS, [facility] Hernandez Downs MD, Unavailable Unavailable Hernandez Downs MD [facility] Unavailable Unavailable MEDICAL CTR, [facility] Unavailable Unavailable HOSPITAL, [facility] DANO ROSHNI, DANO Unavailable Unavailable ROSHNI PHYLICIA SANDERSON, Unavailable Unavailable [facility]YL[facility]available Unavailable [facility] BASIL ADHIKARI MD, Unavailable Unavailable BASIL ADHIKARI MD [facility] Unavailable Unavailable [facility] Unavailable Unavailable INC, [place] [facility], Unavailable Unavailable [facility] Unavailable GROUP PS, [facility] [facility] Un[facility] Unavailable [facility], [facility] Unavailable Unavailable MEDICAL G, [facility] Unavailable Unavailable [...] PHYSICIANS, Unavailable Unavailable PLLC, [facility] Unavailable Unavailable EMERGENCY PHYS, [facility] Unavailable Unavailable EMERGENCY SERV, [facility] SURINDER SMITH, Unavailable Unavailable SURINDER SMITH [facility] Unavailable Unavailable [facility], [facility] Unavailable Unavailable [facility] Unavailable [place] [facility] Purpose Continuity of Care Document - 07-15-2007 through 2016 Problems Code Diagnosis DOS Provider Status [id number] DRUG USE 04-10-2017 [facility] COMPLICATIN PHYSICIANS G GROUP UNS TRIMESTER Z3480 ENC 04-10-2017 [facility] SUPERVISION PHYSICIANS OTH NORMAL GROUP PREG UNS TRIMESTER Z36 ENCOUNTER 03-12-2017 [place] [facility] SCREENING OF MOTHER Z3A20 20 WEEKS 03-12-2017 [place] [facility]ATION [facility]ICAL OF IMAGING ASS Z113 ENCOUNTER [...] TOBACCO USE 01-02-2017 [facility] H13120 UTERINE 12-14-2016 [facility] SIZE-DATE [facility] DISCREPANCY INC FIRST TRIMESTER Z3A01 LESS THAN 8 12-14-2016 [place] [facility]ICAL GESTATION IMAGING ASS OF M40352 OTHER SPEC 12-13-2016 [facility] PHYSICIANS RELATED GROUP COND 1ST TRIMESTER O9989 OTH DZ & 12-13-2016 [facility] COND COMP PHYSICIANS, PREG PLLC CHILDBIRTH PUERPERIUM R55 SYNCOPE AND 12-13-2016 [facility] COLLAPSE [facility]ICIANS, PLLC R110 NAUSEA 12-08-2016 [facility], PLLC R51 HEADACHE 12-08-[address] [facility] Z[facility].01 ENCOUNTER 12-03-2016 FOR TEST, RESULT POSITIVE [id number] LACERATION 12-01-2016 [facility] W/O FOREIGN [facility] BODY RT INC FOOT INITIAL ENC Z3201 ENCOUNTER 11-28-2016 [place] [facility] TEST RESULT POSITIVE B070 PLANTAR 11-02-2016 [facility] WART PHYSICIANS GROUP B370 CANDIDAL 11-02-2016 [facility] STOMATITIS PHYSICIANS GROUP K029 DENTAL 10-13-2016 [facility] UNSPECIFIED INC K047 PERIAPICAL 10-13-2016 [facility] ABSCESS PHYSICIANS, WITHOUT PLLC SINUS X17600 AGGRESSIVE 10-13-2016 [facility] PERIODONTIT [facility] IS INC LOCALIZED UNSPEC SEV N3000 ACUTE 09-30-2016 [facility] CYSTITIS PH[facility]ICIANS, WITHOUT PLLC HEMATURIA N390 URINARY 09-30-2016 [facility] TRACT PHYSICIANS, INFECTION PLLC SITE NOT SPECIFIED B9620 UNS E COLI 07-23-2016 [facility] E. COLI PHYSICIANS, CAUSE DZ PLLC CLASS ELSEWHERE B1920 UNS VIRAL 03-26-2016 [facility] HEPATITIS C HEALTH WITHOUT MEDICAL G HEPATIC COMA N3020 OTHER 03-26-2016 [facility] CHRONIC HEALTH CYSTITIS MEDICAL G WITHOUT HEMATURIA N341 NONSPECIFIC 03-26-2016 [facility] URETHRITIS HEALTH MEDICAL G N3644 MUSCULAR 03-26-2016 [facility] DISORDERS HEALTH OF URETHRA MEDICAL G B379 CANDIDIASIS 02-23-2016 [facility]AGNOSTIC UNSPECIFIED [facility] N281 CYST OF 02-21-2016 [place] [facility]QUIRED [facility] ASS N3090 CYSTITIS 02-21-2016 [place] UNSPECIFIED MEDICAL WITHOUT IMAGING ASS HEMATURIA R1084 GENERALIZED 12-18-2015 [facility] N [facility]ERGENCY PAIN SERV R197 DIARRHEA 12-18-2015 [facility] UNSPECIFIED N EMERGENCY SERV Z5181 ENCOUNTER 12-14-2015 [facility] FOR THERAPEUTIC DRUG LEVEL MONITORING Y71477 OTHER LONG 12-14-2015 [facility] TERM CURRENT DRUG THERAPY B182 CHRONIC 12-07-2015 DAN[facility] ROSHNI VIRAL HEPATITIS C Z392 ENCOUNTER 11-16-2015 [facility] FOR ROUTINE [employer] FOLLOW-UP O623 PRECIPITATE 09-28-2015 [facility] O80 ENCOUNTER 09-28-2015 [place] [facility] FULL-TERM GROUP PS UNCOMPLICAT ED DELIVERY Z370 SINGLE LIVE 09-28-2015 [place] [facility] PS Z3A38 38 WEEKS 09-28-2015 [facility] GESTATION [facility] OF HEALTH CENTE O39615 SUP PREG 09-26-2015 [facility] W/OTH POOR [facility] REPRODUCTIV HEALTH E/OB HX 1ST CENTE TRI R300 DYSURIA 09-26-2015 [facility] [employer] Z3483 ENC 09-26-2015 [facility] SUPERVISION [employer] 3 TRIMESTER Z3A37 37 WEEKS 09-26-2015 [facility] GESTATION [employer] OF [employer] O218 OTHER 09-23-2015 [facility] VOMITING [facility] COMPLICATIN HEALTH G CENTE O2393 UNS 09-23-2015 [facility] GENITOURINA [facility] RY TRACT HEALTH INF PREG CENTE THIRD TRIMESTER O6003 09-23-2015 [facility] LABOR [facility] WITHOUT HEALTH DELIVERY CENTE THIRD TRIMESTER K529 NONINFECTIV 09-22-2015 [facility] ITIS & COLITIS UNS O2340 UNS INF 09-22-2015 [facility] URINARY REGIONAL TRACT IN MEDICAL CTR UNS TRIMESTER O2693 09-22-2015 [facility] RELATED REGIONAL CONDITIONS MEDICAL CTR UNS 3RD TRIMESTER O4703 FALSE LABOR 09-22-2015 [facility] BEFORE 37 REGIONAL CMPLETE MEDICAL CTR WEEKS GEST 3RD TRI W6286C1 OLIGOHYDRAM 09-19-2015 [facility] NIOS REGIONAL UNSPECIFIED MEDICAL CTR TRIMESTER NA/UNS J4444H2 OLIGOHYDRAM 09-19-2015 [facility] THIRD COMMUNITY TRIMESTER HEALTH NA/UNS CENTE Z3A36 36 WEEKS 09-19-2015 [facility] GESTATION [facility] CENTE Q425060 DECREASED 09-14-2015 [facility] REGIONAL MOVEMENTS MEDICAL CTR UNS TRIMESTER NA/UNS D86441 SUP PREG 09-08-2015 [facility] W/OTH POOR REGIONAL REPRODUCTIV MEDICAL CTR E/OB HX UNS TRI Z3A35 35 WEEKS 09-08-2015 [facility] GESTATION [facility] CENTE D99541 DRUG USE 08-29-2015 [facility] COMPLICATIN PHYSICIANS G GROUP THIRD TRIMESTER V17171 SUP PREG 08-24-2015 [facility] W/OTH POOR SERV REPRODUCTIV FOUNDATION E/OB HX THIRD TRI Z3A33 33 WEEKS 08-24-2015 [facility] GESTATION SERV OF FOUNDATION D6861 ANTIPHOSPHO 07-27-2015 [facility] LIPID SERV SYNDROME FOUNDATION Z3A29 29 WEEKS 07-27-2015 [facility]ST[facility] SERV OF FOUNDATION D689 COAGULATION 07-24-2015 [facility] DEFECT N EMERGENCY UNSPECIFIED PHYS N60803 OTH DZ 07-24-2015 [facility] BLOOD & BFO N EMERGENCY IMMUN MECH PHYS COMP PREG 3RD TRI Z3A32 32 WEEKS 07-24-2015 [facility] GESTATION N EMERGENCY OF PHYS [id number] DECREASED 06-25-2015 [facility] MOVEMENTS INC SECOND TRI NA/UNS Z3A24 24 WEEKS 06-25-2015 [facility] GESTATION [facility] OF INC O471 FALSE LABOR 05-20-2015 [facility] Pineda AT/AFTER ZEYNEP HUANG 37 COMPLETED WEEKS GEST Y52901 ATYP SQ 05-04-2015 [facility] HOSPI SIGNIFICANC E CYTOL SMER CERV Z779 OTH CONTACT 05-04-2015 [facility] SUSPECTED HOSPI EXPOSURES [facility] 78803 UNSPECIFIED 03-08-2015 [facility] N 5990 URINARY 03-06-2015 [facility] INFECTION SITE NOT SPECIFIED 31872 MILD 03-06-2015 [facility] HYPEREMESIS CARE [facility]YSIC[facility]ANS ANTEPARTUM 95898 INFECTIONS 03-06-2015 [facility] GENITOURINA RY TRACT ANTEPARTUM 62528 TOB USE D/O 03-06-2015 [facility] COMP PG EAST /PP ANTEPARTM COND/COMP 27051 TRICHOMONAL 02-17-2015 [facility] VULVOVAGINI TIS V221 SUPERVISION 02-17-2015 [facility] OTHER [facility] NORMAL V745 SCREENING 02-17-2015 [facility] EX[facility]ATION [facility] FOR VENEREAL DISEASE 47624 ABDOMINAL 02-07-2015 [facility] PAIN OTHER [facility] SPECIFIED INC SITE 98814 OTH&UNS ABN 02-04-2015 [facility]&PELVIS IMAGING ASS ANTPRTM COND/COMPL 76791 ABDOMINAL 01-27-2015 [facility] PAIN, [facility] GENERALIZED INC 1120 CANDIDIASIS 04-02-2014 [facility] 6202 OTHER AND 03-08-2014 [facility] P[facility] UNSPECIFIED ZEYNEP HUANG OVARIAN CYST 6268 OTH D/O 03-08-2014 [facility] MENSTRUATIO ZEYNEP HUANG N&OTH ABN BLEED FE GNT TRACT V7231 ROUTINE 03-08-2014 [facility] GYNECOLOGIC ZEYNEP HUANG AL EXAMINATION 305.1 305.1 05-15-[address] [facility] 599.0 599.0 URIN 05-15-2013 [place] TRACT [facility] INFECTION Hospital NOS 780.4 780.4 03-22-2013 [place] DIZZINESS, [facility] VERTIGO 784.0 784.0 03-22-2013 [place] HEADACHE [facility] 845.00 845.00 03-07-2013 [place] SPRAIN OF [facility] ANKLE [facility] E849.8 E849.8 03-07-2013 [place] ACCIDENT IN [facility] E927.0 E927.0 03-07-2013 [place] OVEREXERTIO [facility] FROM [facility] SUDDEN STRENUOUS MOVEMENT V64.2 V64.2 NO 12-23-2012 [place] [facility] 6253 DYSMENORRHE 08-11-2007 [facility] [place] [facility] 6259 UNSPEC 08-11-2007 [facility] SYMPTOM HEALTH ASSOC CLINIC OF W/FEMALE [place] GENITAL [facility] ORGANS 6264 IRREGULAR 08-04-2007 [facility]OMEN'S MENSTRUAL HEALTH CYCLE [facility]IN[facility] [place] [facility] V692 PROBLEMS 08-04-2007 WOMEN'S RELATED TO HEALTH HIGH-RISK CLINIC OF SEXUAL [place] BEHAVIOR [facility] 84233 NONSPEC 07-21-2007 [facility] ABNORM [facility]AP [place] INC CERV UNSATISFACT ORY CYTOLOGY V251 ENCOUNTER 07-21-2007 WOMEN'S INSERT/BIN HEALTH EB IU CLINIC OF CONTRACEPTI [place] VE DEVICE [facility] 34777 PAP SMER 07-15-2007 WOMEN'S CERV HEALTH W/ATYPICAL CLINIC OF SQUAMOUS [place] CELLS UNDET [facility] 33894 CERV HIGH 07-15-2007 WOMEN'S RISK HUMAN HEALTH PAPILLOMAVI [facility] [place] DNA [place] TEST POS [facility] V242 ROUTINE 07-15-2007 [facility] [place] [facility] FOLLOW-UP [...] CY NT HI AN A IN C OR 65 06 07 14 4 00 EA [...] 04 05 3. 1 00 CL Ac OR 09 -1 -1 00 00 IN ti EN 35 7- 9- 0 00 IC ve OR 72 20 20 42 PH 15 17 17 79 PH IN 6 70 AR -N MA AL CY OX ON 8- 2 MG SL BU 00 04 05 3. 1 00 CL Ac OR 09 -0 -1 00 00 IN ti [...] 01 03 14 7 00 EA Ac OR 71 -3 -[address] ti [...] AT E 10 0 MG CA P IL 50 01 03 00 1. 1 TH [...] complet 013 TE ed 15:00 ORDER HL [id number] CHLAMYDIA AND GONORRHEA TESTING (09-30-2012 15:00) Chlamyd [...] M. 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:00 SELLING MANAGER ETHNICI WHITE, complet TY 013 NON-HIS ed [...] End Date Code Location Performer Type Date [facility] - 7 7 [facility] 7 7 [facility] 7 7 [facility] 7 7 [facility] 7 7 [facility] [place] [facility] 7 7 [facility] - 7 7 [facility] - 7 7 [facility] [place] - 7 7 [facility] - 6 6 [facility] [place] - 6 6 [facility] - 6 6 [facility] - 6 6 [facility] - 6 6 [facility] - 6 6 [facility] - 6 6 [facility] - 6 6 [facility] - 6 6 [facility] - 5 [facility] - 5 5 [facility] - 5 5 [facility] - 5 5 [facility] [place] - 5 5 [facility] [place] - 5 5 [facility] Emergency VALERIY Downs MD (ER) 3 12:04 3 12:17 [facility] Emergency VALERIY Downs MD (ER) 3 13:58 3 15:42 [facility] Emergency VALERIY OWEN (ER) 3 10:19 3 11:52 [facility] Emergency VALERIY Harris MD (ER) 3 20:19 [facility] [place] - 8 8 [facility]
--- OUTSIDE RECORDS SUMMARY | 2017-05-17 02:38 | External Medical Summary Rpt | CCD ---
Author Author , MIRIAM PINEDA Address Unknown Phone [email or web address] Care Team Providers Care Chief Communications Officer Name Role Phone [facility] Unavailable Unavailable PHYSICIANS, [facility] Unavailable Unavailable MEDICAL CTR, [facility] Unavailable Unavailable HOSPITAL, [facility] DANO ROSHNI, DANO Unavailable Unavailable ROSHNI PHYLICIA SANDERSON, Unavailable Unavailable [facility]YL[facility] Unavailable Unavailable [facility] BASIL ADHIKARI MD, Unavailable Unavailable BASIL ADHIKARI MD [facility] Unavailable Unavailable [facility] Unavailable [facility]available INC, [facility], [facility]available Unavailable [facility] Unavailable GROUP PS, [facility] Un[facility] Un[facility], [facility] Unavailable Unavailable MEDICAL G, [facility], [facility] Unavailable Unavailable [facility], [facility], LABS Unavailable Unavailable [facility] Unavailable Unavailable [facility] LLC, [facility] Unavailable Unavailable [facility], [facility], Unavailable Unavailable PLL, [facility], [facility] Unavailable Unavailable EMERGENCY PHYS, [facility] Unavailable Unavailable EMERGENCY SERV, [facility] SURINDER SMITH, Unavailable Unavailable SURINDER SMITH [facility] Unavailable Unavailable [facility], [facility] Unavailable Unavailable COM INC [facility] Unavailable [facility] Purpose Continuity of Care Document - 07-15-2007 through 2016 Problems Code Diagnosis DOS Provider Status [id number] DRUG USE 04-10-2017 [facility] COMPLICATIN PHYSICIANS G GROUP UNS TRIMESTER Z3480 ENC 04-10-2017 [facility] SUPERVISION PHYSICIANS OTH NORMAL GROUP PREG UNS TRIMESTER Z36 ENCOUNTER 03-12-2017 [facility] SCREENING OF MOTHER Z3A20 20 WEEKS 03-12-2017 [facility] MEDICAL OF IMAGING ASS Z113 ENCOUNTER 01-08-2017 [...] TOBACCO USE 01-02-2017 [facility] [id number] UTERINE 12-14-2016 [facility] SIZE-DATE [facility] DISCREPANCY INC FIRST TRIMESTER Z3A01 LESS THAN 8 12-14-2016 [facility] MEDICAL GESTATION IMAGING ASS [place] [id number] OTHER SPEC 12-13-2016 [facility] PHYSICIANS RELATED GROUP COND 1ST TRIMESTER O9989 OTH DZ & 12-13-2016 [facility] COND COMP [facility]YSICIANS, PREG PLLC CHILDBIRTH PUERPERIUM R55 SYNCOPE AND 12-13-2016 [facility] COLLAPSE [facility]ANS, PLLC R110 NAUSEA 12-08-2016 [facility], PLLC R51 HEADACHE 12-08-2016 [facility], [facility] [id number] LACERATION 12-01-2016 [facility] W/O FOREIGN [facility] BODY RT INC FOOT INITIAL ENC Z3201 ENCOUNTER 11-28-2016 [facility] TEST RESULT POSITIVE B070 PLANTAR 11-02-2016 [facility] WART PHYSICIANS GROUP B370 CANDIDAL 11-02-2016 [facility] STOMATITIS PHYSICIANS GROUP K029 DENTAL 10-13-2016 [facility] UNSPECIFIED INC K047 PERIAPICAL 10-13-2016 [facility] ABSCESS [facility]ICIANS, WITHOUT PLLC SINUS K92203 AGGRESSIVE 10-13-2016 [facility] PERIODONTIT [facility] IS INC LOCALIZED UNSPEC SEV N3000 ACUTE 09-30-2016 [facility] CYSTITIS [facility]ICIANS, WITHOUT PLLC HEMATURIA N390 URINARY 09-30-2016 [facility] TRACT [facility]YSIC[facility]ANS, INFECTION PLL SITE NOT SPECIFIED B9620 UNS E COLI 07-23-2016 [facility] E. COLI PHYSICIANS, CAUSE DZ PLLC CLASS ELSEWHERE B1920 UNS VIRAL 03-26-2016 [facility] HEPATITIS C HEALTH WITHOUT MEDICAL G HEPATIC COMA N3020 OTHER 03-26-2016 [facility] CHRONIC HEALTH CYSTITIS MEDICAL G WITHOUT HEMATURIA N341 NONSPECIFIC 03-26-2016 [facility] URETHRITIS HEALTH MEDICAL G N3644 MUSCULAR 03-26-2016 [facility] DISORDERS HEALTH OF URETHRA MEDICAL G B379 CANDIDIASIS 02-23-2016 [facility]PECIFIED [facility] N281 CYST OF 02-21-2016 [facility] N3090 CYSTITIS 02-21-2016 [facility]PEC[facility]ICAL WITHOUT IMAGING ASS HEMATURIA R1084 GENERALIZED 12-18-2015 [facility] ABDOM[facility] N [facility]GENCY PAIN SERV R197 DIARRHEA 12-18-2015 [facility] UNSPECIFIED N EMERGENCY SERV Z5181 ENCOUNTER 12-14-2015 [facility] LABS FOR THERAPEUTIC DRUG LEVEL MONITORING A37475 OTHER LONG 12-14-2015 MD LABS TERM CURRENT DRUG THERAPY B182 CHRONIC 12-07-2015 DANO ROSHNI VIRAL HEPATITIS C Z392 ENCOUNTER 11-16-2015 [facility] FOR ROUTINE [facility] FOLLOW-UP O623 PRECIPITATE 09-28-2015 [facility] O80 ENCOUNTER 09-28-2015 [facility] FULL-TERM GROUP PS UNCOMPLICAT ED DELIVERY Z370 SINGLE LIVE 09-28-2015 [facility] PS Z3A38 38 WEEKS 09-28-2015 [facility] GESTATION [facility] OF HEALTH CENTE K18126 SUP PREG 09-26-2015 [facility] W/OTH POOR [facility] REPRODUCTIV HEALTH E/OB HX 1ST CENTE TRI R300 DYSURIA 09-26-2015 [facility] Z3483 ENC 09-26-2015 [facility] SUPERVISION [facility] OT NORMAL HOLDINGS 3 TRIMESTER Z3A37 37 WEEKS 09-26-2015 [facility] GESTATION [facility] OF HOLDINGS O218 OTHER 09-23-2015 [facility] VOMITING [facility] COMPLICATIN HEALTH G CENTE O2393 UNS 09-23-2015 [facility] GENITOURINA [facility] RY TRACT HEALTH INF PREG CENTE THIRD TRIMESTER O6003 09-23-2015 [facility] LABOR [facility] WITHOUT HEALTH DELIVERY CENTE THIRD TRIMESTER K529 NONINFECTIV 09-22-2015 [facility] ITIS & COLITIS UNS O2340 UNS INF 09-22-2015 [facility] URINARY REGIONAL TRACT IN MEDICAL CTR UNS TRIMESTER O2693 09-22-2015 [facility] RELATED REGIONAL CONDITIONS MEDICAL CTR UNS 3RD TRIMESTER O4703 FALSE LABOR 09-22-2015 [facility] BEFORE 37 REGIONAL CMPLETE MEDICAL CTR WEEKS GEST 3RD TRI S9063S8 OLIGOHYDRAM 09-19-2015 [facility] NIOS REGIONAL UNSPECIFIED MEDICAL CTR TRIMESTER NA/UNS P8816S8 OLIGOHYDRAM 09-19-2015 [facility] NIOS THIRD COMMUNITY TRIMESTER HEALTH NA/UNS CENTE Z3A36 36 WEEKS 09-19-2015 [facility] GESTATION [facility] CENTE [id number] DECREASED 09-14-2015 [facility] REGIONAL MOVEMENTS MEDICAL CTR UNS TRIMESTER NA/UNS P42343 SUP PREG 09-08-2015 [facility] W/OTH POOR REGIONAL REPRODUCTIV MEDICAL CTR E/OB HX UNS TRI Z3A35 35 WEEKS 09-08-2015 [facility] GESTATION [facility] CENTE S40831 DRUG USE 08-29-2015 [facility] COMPLICATIN PHYSICIANS G GROUP THIRD TRIMESTER B54613 SUP PREG 08-24-2015 [facility] MEDICAL W/OTH POOR SERV REPRODUCTIV FOUNDATION E/OB HX THIRD TRI Z3A33 33 WEEKS 08-24-2015 [facility] GESTATION SERV OF FOUNDATION D6861 ANTIPHOSPHO 07-27-2015 [facility]ICAL LIPID SERV SYNDROME FOUNDATION Z3A29 29 WEEKS 07-27-2015 [place] [facility] SERV OF [facility]OUNDATION D689 COAGULATION 07-24-2015 [facility] DEFECT N EMERGENCY UNSPECIFIED PHYS Y89473 OTH DZ 07-24-2015 [facility] BLOOD & BFO N EMERGENCY IMMUN MECH PHYS COMP PREG 3RD TRI Z3A32 32 WEEKS 07-24-2015 [facility] GESTATION N EMERGENCY OF PHYS K610006 DECREASED 06-25-2015 [facility] MOVEMENTS INC SECOND TRI NA/UNS Z3A24 24 WEEKS 06-25-2015 [facility] GESTATION [facility] OF INC O471 FALSE LABOR 05-20-2015 [facility] Pineda AT/AFTER ZEYNEP HUANG 37 COMPLETED WEEKS GEST Y37459 ATYP SQ 05-04-2015 [facility] SIGNIFICANC E CYTOL SMER CERV Z779 OTH CONTACT 05-04-2015 [facility] SUSPECTED HOSPI EXPOSURES [facility] 12263 UNSPECIFIED 03-08-2015 [facility] SERV CONSTIPATIO FOUNDATION N 5990 URINARY 03-06-2015 [facility] INFECTION SITE NOT SPECIFIED 91000 MILD 03-06-2015 [facility]PEREMESIS [facility] PHYSICIANS ANTEPARTUM 23062 INFECTIONS 03-06-2015 [facility] GENITOURINA RY TRACT ANTEPARTUM 90778 TOB USE D/O 03-06-2015 [facility] COMP PG EAST /PP ANTEPARTM COND/COMP 83017 TRICHOMONAL 02-17-2015 [facility] VULVOVAGINI TIS V221 SUPERVISION 02-17-2015 [facility] OF OTHER LLC NORMAL V745 SCREENING 02-17-2015 [facility] EXAMINATION LLC FOR VENEREAL DISEASE 14457 ABDOMINAL 02-07-2015 [facility] PAIN OTHER MEM [facility]OS[facility] SPECIFIED INC SITE 55857 OTH&UNS ABN 02-04-2015 [facility] ORGN&PELVIS IMAGING ASS ANTPRTM COND/COMPL 09113 ABDOMINAL 01-27-2015 [facility] PAIN, MEM [facility]OS[facility] GENERALIZED INC 1120 CANDIDIASIS 04-02-2014 [facility] 6202 OTHER AND 03-08-2014 [facility] UNSPECIFIED ZEYNEP HUANG OVARIAN CYST 6268 OTH D/O 03-08-2014 [facility] MENSTRUATIO ZEYNEP HUANG N&OTH ABN BLEED FE GNT TRACT V7231 ROUTINE 03-08-2014 [facility] GYNECOLOGIC ZEYNEP HUANG AL EXAMINATION 6253 DYSMENORRHE 08-11-2007 [facility] 6259 UNSPEC 08-11-2007 [facility] SYMPTOM HEALTH ASSOC CLINIC OF W/FEMALE [place] GENITAL [facility] ORGANS 6264 IRREGULAR 08-04-2007 [facility] MENSTRUAL [facility]ALTH [facility] V692 PROBLEMS 08-04-2007 [facility]OMEN'S RELATED TO HEALTH HIGH-RISK CLINIC OF SEXUAL [place] BEHAVIOR [facility] 55464 NONSPEC 07-21-2007 [facility] ABNORM PAP [place] INC CERV UNSATISFACT ORY CYTOLOGY V251 ENCOUNTER 07-21-2007 [facility]OMEN'[facility] INSERT/BIN HEALTH EB IU CLINIC OF CONTRACEPTI [place] VE DEVICE [facility] 00288 PAP SMER 07-15-2007 [facility] CERV HEALTH W/ATYPICAL CLINIC OF SQUAMOUS [place] CELLS UNDET [facility] 33027 CERV HIGH 07-15-2007 WOMEN'S RISK HUMAN HEALTH P[facility]ILLOM[facility]I [facility]IN[facility] OF [place] DNA [place] TEST POS [facility] V242 ROUTINE 07-15-2007 [facility] [place] INC FOLLOW-UP Medications Na ND Rx Da Fi Fi [...] CY NT HI AN A IN C KS 65 06 07 14 4 00 EA [...] 04 05 3. 1 00 CL Ac KS 09 -1 -1 00 00 IN ti EN 35 4- 9- 0 00 IC ve OR 72 20 20 42 PH 15 17 17 79 PH IN 6 70 AR -N MA AL CY OX ON 8- 2 MG SL BU 00 04 05 3. 1 00 CL Ac KS 09 -0 -1 00 00 IN ti [...] 01 03 14 7 00 EA Ac KS 71 -3 -[address] ti [...] NT B HI AN A IN C 00 02 03 00 60 30 CL 16 No Ac 14 -1 -2 .0 IN 46 t ti 39 1- 6- 00 IC 14 Av ve 90 20 20 ai 80 08 08 PH la 1 AR bl MA e CY DO 00 02 03 00 28 14 CL 16 No Ac XY 59 -1 -2 .0 IN 46 t ti CY 15 1- 6- 00 IC 15 Av ve CL 44 20 20 ai IN 00 08 08 PH la E 5 AR bl HY MA e CL CY AT E 10 0 MG CA P 00 02 03 00 20 4 CL [...] la 5 AR bl MA e CY IN 50 01 03 00 1. 1 TH 19 No Ac RE 41 -1 -2 00 ER 85 t ti NA 90 1- 4- 0 A 82 Av ve 42 20 20 CO 1 ai SY [address] 1 IN bl EM C e Encounters Encounter Start End Date Code Location Performer Type Date [facility]PITAL [facility] - 7 7 [facility] 7 [facility] - 7 7 [facility] - 7 7 [facility] - 7 7 [facility] - 7 7 [facility]EMIOON - 7 7 [facility] - 7 7 [facility] - 7 7 [facility] - 7 7 [facility] - 6 6 [facility] - 6 6 [facility] - 6 6 [facility] - 6 6 [facility] 6 [facility] - 6 6 [facility] - 6 6 [facility] - 6 6 [facility] - 6 6 [facility] UNIVERSIT - 5 [address] [facility] [place] - 5 5 [facility] - 5 5 [facility] - 5 5 [facility] - 5 5 [facility] JUANA - 5 5 [facility] JUANA - 8 8 [facility]
--- OUTSIDE RECORDS SUMMARY | 2017-05-17 02:38 | External Medical Summary Rpt | CCD ---
Author Author , MARCELINA PINEDA Address Unknown Phone [email or web address] Immunization Name Date Rout CVX Reac Dose Comm Prov Is Faci e tion ent ider Refu lity Give sed n Tdap 04-0 115 999 Hist H149 No H149 , 9-20 oric Adso 13 al rbed Info rmat ion - Sour ce Unsp ecif ied
--- OUTSIDE RECORDS SUMMARY | 2017-05-17 02:38 | External Medical Summary Rpt | CCD ---
Author Author , MARCELINA PINEDA Address Unknown Phone [email or web address] Immunization Name Date Rout CVX Reac Dose Comm Prov Is Faci e tion ent ider Refu lity Give sed n Tdap 04-0 115 999 Hist H149 No H149 , 9-20 oric Adso 13 al rbed Info rmat ion - Sour ce Unsp ecif ied
--- OUTSIDE RECORDS SUMMARY | 2017-05-17 02:38 | External Medical Summary Rpt | CCD ---
Author Author , MIRIAM PINEDA Address Unknown Phone [email or web address] Care Team Providers Care Product Responsibility Liaison Name Role Phone [facility] Unavailable Unavailable PHYSICIANS, [facility] [place] Unavailable Unavailable MEDICAL CTR, [facility] [place] Unavailable Unavailable HOSPITAL, [facility] DANO ROSHNI, DANO Unavailable Unavailable ROSHNI PHYLICIA SANDERSON, Unavailable Unavailable [facility]YLICIA [facility] Unavailable Unavailable [facility] BASIL ADHIKARI MD, Unavailable Unavailable BASIL ADHIKARI MD [facility] Unavailable Unavailable [facility] Unavailable Unavailable INC, [facility], [facility]available Unavailable [facility] [place] [facility] Unavailable GROUP PS, [facility] [place] [facility] [place] [facility] Unavailable [facility], [facility] Unavailable [facility]available MEDICAL G, [facility], [facility] Unavailable Unavailable HOLDINGS, [facility], LABS Unavailable Unavailable [facility] Unavailable Unavailable [facility] LLC, [facility] Unavailable Unavailable LAB[facility], [facility], Unavailable Unavailable PLL, [facility], [facility] Unavailable Unavailable EMERGENCY PHYS, [facility] Unavailable Unavailable EMERGENCY SERV, [facility] SURINDER SMITH, Unavailable Unavailable SURINDER SMITH [facility] Unavailable Unavailable [facility], [facility] Unavailable Unavailable COM INC [facility] Un[facility] [place] [facility], [facility] Purpose Continuity of Care Document - 07-15-2007 through 2016 Problems Code Diagnosis DOS Provider Status [id number] DRUG USE 04-10-2017 [facility] COMPLICATIN PHYSICIANS G GROUP UNS TRIMESTER Z3480 ENC 04-10-2017 [facility] SUPERVISION PHYSICIANS OTH NORMAL GROUP PREG UNS TRIMESTER Z36 ENCOUNTER 03-12-2017 [place] [facility] SCREENING OF MOTHER Z3A20 20 WEEKS 03-12-2017 [facility] MEDICAL OF IMAGING ASS Z113 [...] TOBACCO USE 01-02-2017 [facility] [id number] UTERINE 12-14-2016 [facility] SIZE-DATE [facility] DISCREPANCY INC FIRST TRIMESTER Z3A01 LESS THAN 8 12-14-2016 [facility] MEDICAL GESTATION IMAGING ASS OF G07617 OTHER SPEC 12-13-2016 [facility] PHYSICIANS RELATED GROUP COND 1ST TRIMESTER O9989 OTH DZ & 12-13-2016 [facility] COND COMP PHYSICIANS, PREG PLLC CHILDBIRTH PUERPERIUM R55 SYNCOPE AND 12-13-2016 [facility] COLLAPSE [facility]ANS, PLLC R110 NAUSEA 12-08-2016 [facility], PLLC R51 HEADACHE 12-08-2016 [facility], [facility] [id number] LACERATION 12-01-2016 [facility] W/O FOREIGN [facility] BODY RT INC FOOT INITIAL ENC Z3201 ENCOUNTER 11-28-2016 [facility] TEST RESULT POSITIVE B070 PLANTAR 11-02-2016 [facility] WART PHYSICIANS GROUP B370 CANDIDAL 11-02-2016 [facility] STOMATITIS PHYSICIANS GROUP K029 DENTAL 10-13-2016 [facility] UNSPECIFIED INC K047 PERIAPICAL 10-13-2016 [facility] ABSCESS [facility]ICIANS, WITHOUT PLLC SINUS L66104 AGGRESSIVE 10-13-2016 [facility] PERIODONTIT [facility] IS INC LOCALIZED UNSPEC SEV N3000 ACUTE 09-30-2016 [facility] CYSTITIS [facility]ICIANS, WITHOUT PLLC HEMATURIA N390 URINARY 09-30-2016 [facility] TRACT PHYSICIANS, INFECTION PLL SITE NOT SPECIFIED B9620 UNS E COLI 07-23-2016 [facility] E. COLI PHYSICIANS, CAUSE DZ PLLC CLASS ELSEWHERE B1920 UNS VIRAL 03-26-2016 [facility] HEPATITIS C HEALTH WITHOUT MEDICAL G HEPATIC COMA N3020 OTHER 03-26-2016 [facility] CHRONIC HEALTH CYSTITIS MEDICAL G WITHOUT HEMATURIA N341 NONSPECIFIC 03-26-2016 [facility] URETHRITIS HEALTH MEDICAL G N3644 MUSCULAR 03-26-2016 [facility] DISORDERS HEALTH OF URETHRA MEDICAL G B379 CANDIDIASIS 02-23-2016 [facility] UNSPECIFIED LAB LLC N281 CYST OF 02-21-2016 [place] [facility]QUIRED IM[facility]ING ASS N3090 CYSTITIS 02-21-2016 [place] UNSPECIFIED MEDICAL WITHOUT IMAGING ASS HEMATURIA R1084 GENERALIZED 12-18-2015 [facility] ABD[facility] N [facility]Y PAIN SERV R197 DIARRHEA 12-18-2015 [facility] UNSPECIFIED N EMERGENCY SERV Z5181 ENCOUNTER 12-14-2015 [facility] LAB[facility] FOR THERAPEUTIC DRUG LEVEL MONITORING P94970 OTHER LONG 12-14-2015 [facility] LABS TERM CURRENT DRUG THERAPY B182 CHRONIC 12-07-2015 DANO ROSHNI VIRAL HEPATITIS C Z392 ENCOUNTER 11-16-2015 [facility] FOR ROUTINE [facility] FOLLOW-UP O623 PRECIPITATE 09-28-2015 [facility]ALTH [facility]ENT[facility] O80 ENCOUNTER 09-28-2015 [place] [facility] FULL-TERM GROUP PS UNCOMPLICAT ED DELIVERY Z370 SINGLE LIVE 09-28-2015 [place] [facility] PS Z3A38 38 WEEKS 09-28-2015 [facility] GESTATION [facility] OF HEALTH CENTE L72848 SUP PREG 09-26-2015 [facility] W/OTH POOR [facility] REPRODUCTIV HEALTH E/OB HX 1ST CENTE TRI R300 DYSURIA 09-26-2015 [facility] Z3483 ENC 09-26-2015 [facility] SUPERVISION [facility] OT NORMAL HOLDINGS 3 TRIMESTER Z3A37 37 WEEKS 09-26-2015 [facility] GESTATION [facility] OF HOLDINGS O218 OTHER 09-23-2015 [facility] VOMITING [facility] COMPLICATIN HEALTH G CENTE O2393 UNS 09-23-2015 [facility] GENITOURINA [facility] RY TRACT HEALTH INF PREG CENTE THIRD TRIMESTER O6003 09-23-2015 [facility] LABOR [facility] WITHOUT HEALTH DELIVERY CENTE THIRD TRIMESTER K529 NONINFECTIV 09-22-2015 [facility] ITIS & COLITIS UNS O2340 UNS INF 09-22-2015 [facility] URINARY REGIONAL TRACT IN MEDICAL CTR UNS TRIMESTER O2693 09-22-2015 [facility] RELATED REGIONAL CONDITIONS MEDICAL CTR UNS 3RD TRIMESTER O4703 FALSE LABOR 09-22-2015 [facility] BEFORE 37 REGIONAL CMPLETE MEDICAL CTR WEEKS GEST 3RD TRI L3831Y0 OLIGOHYDRAM 09-19-2015 [facility] NIOS REGIONAL UNSPECIFIED MEDICAL CTR TRIMESTER NA/UNS E6521C0 OLIGOHYDRAM 09-19-2015 [facility] NIOS THIRD COMMUNITY TRIMESTER HEALTH NA/UNS CENTE Z3A36 36 WEEKS 09-19-2015 [facility] GESTATION [facility] CENTE X600262 DECREASED 09-14-2015 [facility] REGIONAL MOVEMENTS MEDICAL CTR UNS TRIMESTER NA/UNS K10182 SUP PREG 09-08-2015 [facility] W/OTH POOR REGIONAL REPRODUCTIV MEDICAL CTR E/OB HX UNS TRI Z3A35 35 WEEKS 09-08-2015 [facility] GESTATION [facility] CENTE T69015 DRUG USE 08-29-2015 [facility] COMPLICATIN PHYSICIANS G GROUP THIRD TRIMESTER K50933 SUP PREG 08-24-2015 [place] [facility] W/OTH POOR SERV REPRODUCTIV FOUNDATION E/OB HX THIRD TRI Z3A33 33 WEEKS 08-24-2015 [facility] SERV OF FOUNDATION D6861 ANTIPHOSPHO 07-27-2015 [place] [facility] LIPID SERV SYNDROME FOUNDATION Z3A29 29 WEEKS 07-27-2015 [place] [facility] SERV OF FOUNDATION D689 COAGULATION 07-24-2015 [facility] DEFECT N EMERGENCY UNSPECIFIED PHYS D85508 OTH DZ 07-24-2015 [facility] BLOOD & BFO N EMERGENCY IMMUN MECH PHYS COMP PREG 3RD TRI Z3A32 32 WEEKS 07-24-2015 [facility] GESTATION N EMERGENCY OF PHYS [id number] DECREASED 06-25-2015 [facility] MOVEMENTS INC SECOND TRI NA/UNS Z3A24 24 WEEKS 06-25-2015 [facility] GESTATION [facility] OF INC O471 FALSE LABOR 05-20-2015 BAS[facility] Pineda AT/AFTER ZEYNEP HUANG 37 COMPLETED WEEKS GEST N17293 ATYP SQ 05-04-2015 [facility] HOS[facility] SIGNIFICANC E CYTOL SMER CERV Z779 OTH CONTACT 05-04-2015 [facility] SUSPECTED HOSPI EXPOSURES [facility] 80446 UNSPECIFIED 03-08-2015 [place] [facility] CONSTIPATIO FOUNDATION N 5990 URINARY 03-06-2015 [facility] INFECTION SITE NOT SPECIFIED 46138 MILD 03-06-2015 [facility]PEREMESIS [facility] ANTEPARTUM 69123 INFECTIONS 03-06-2015 [facility] GENITOURINA RY TRACT ANTEPARTUM 53619 TOB USE D/O 03-06-2015 [facility] COMP PG EAST /PP ANTEPARTM COND/COMP 51525 TRICHOMONAL 02-17-2015 [facility] VULVOVAGINI TIS V221 SUPERVISION 02-17-2015 [facility] OF OTHER LLC NORMAL V745 SCREENING 02-17-2015 [facility] EXAMINATION LLC FOR VENEREAL DISEASE 37554 ABDOMINAL 02-07-2015 [facility] PAIN OTHER MEM [facility] SPECIFIED INC SITE 29701 OTH&UNS ABN 02-04-2015 [facility] ORGN&PELVIS IMAGING ASS ANTPRTM COND/COMPL 19829 ABDOMINAL 01-27-2015 [facility] PAIN, [facility] GENERALIZED INC 1120 CANDIDIASIS 04-02-2014 [facility] GROUP 6202 OTHER AND 03-08-2014 [facility] Pineda UNSPECIFIED ZEYNEP HUANG OVARIAN CYST 6268 OTH D/O 03-08-2014 [facility] MENSTRUATIO ZEYNEP HUANG N&OTH ABN BLEED FE GNT TRACT V7231 ROUTINE 03-08-2014 [facility] Pined[facility] GYNECOLOGIC ZEYNEP HUANG AL EXAMINATION 6253 DYSMENORRHE 08-11-2007 [facility] 6259 UNSPEC 08-11-2007 [facility] SYMPTOM HEALTH ASSOC CLINIC OF W/FEMALE [place] GENITAL [facility] ORGANS 6264 IRREGULAR 08-04-2007 [facility] MENSTRUAL HEALTH CYCLE [facility] V692 PROBLEMS 08-04-2007 WOMEN'S RELATED TO HEALTH HIGH-RISK CLINIC OF SEXUAL [place] BEHAVIOR [facility] 08384 NONSPEC 07-21-2007 [facility] ABNORM PAP [place] INC CERV UNSATISFACT ORY CYTOLOGY V251 ENCOUNTER 07-21-2007 WOMEN'S INSERT/BIN HEALTH EB IU CLINIC OF CONTRACEPTI [place] VE DEVICE [facility] 56427 PAP SMER 07-15-2007 [facility]OMEN'S CERV HEALTH W/ATYPICAL CLINIC OF SQUAMOUS [place] CELLS UNDET [facility] 18587 CERV HIGH 07-15-2007 WOMEN'S RISK [facility] P[facility]INIC OF ALEX[place]ER DNA [place] TEST POS [facility] V242 ROUTINE 07-15-2007 [facility] [place] INC FOLLOW-UP [...] CY NT HI AN A IN C MA 65 06 07 14 4 00 EA [...] 04 05 3. 1 00 CL Ac MA 09 -1 -1 00 00 IN ti EN 35 4- 9- 0 00 IC ve OR 72 20 20 42 PH 15 17 17 79 PH IN 6 70 AR -N MA AL CY OX ON 8- 2 MG SL BU 00 04 05 3. 1 00 CL Ac MA 09 -0 -1 00 00 IN ti [...] 01 03 14 7 00 EA Ac MA 71 -3 -[address] ti [...] la 5 AR bl MA e CY FL 50 01 03 00 1. 1 TH 19 No Ac RE 41 -1 -2 00 ER 85 t ti NA 90 1- 4- 0 A 82 Av ve 42 20 20 CO 1 ai SY 10 [address] 1 IN bl EM C e Encounters Encounter Start End Date Code Location Performer Type Date HOSPITAL [facility] - 7 7 [facility] 7 [facility] - 7 7 [facility] - 7 7 [facility] - 7 7 [facility] 7 7 [facility] - 7 7 [facility] - 7 7 [facility] - 7 7 [facility] - 7 7 [facility] - 7 7 [facility] - 6 6 [facility] - 6 6 [facility] - 6 6 [facility] - 6 6 [facility] 6 [facility] - 6 [facility] - 6 6 [facility] 6 6 [facility] - 6 6 [facility] - [facility] [address] [facility] [place] - 5 5 [facility] J[facility] - 5 5 [facility] - 5 5 [facility] - 5 5 [facility] 5 5 [facility]
--- OUTSIDE RECORDS SUMMARY | 2017-05-17 02:40 | External Medical Summary Rpt ---
Author Author MIKAELAWESLEY Shore, [employer] Address Unknown Phone Unavailable Results Urinalysis dipstick W Reflex Microscopic panel in Urine Observa Value Referen Units Interpr Notes Date tion ce etation Range Collected by nurse? Y Hold specimen in OE? N Appeara CLEAR CLEAR No No No May 14 nce of informa informa informa 2017 Urine tion in tion in tion in 7:50 PM source source source data data data Amorpho 1+ NONE No No No May 14 us informa informa informa 2017 sedimen tion in tion in tion in 7:50 PM t source source source [Presen data data data ce] in Urine sedimen t by Light microsc opy Bacteri 1+ O No No No May 14 a informa informa informa 2016 [Presen tion in tion in tion in 7:50 PM ce] in source source source Urine data data data sedimen t by Light microsc opy Bilirub NEGATIV NEG No No No May 14 in E informa informa informa 2016 [Presen tion in tion in tion in 7:50 PM ce] in source source source Urine data data data by Test strip Erythro NEGATIV NEG No No No May 14 cytes E informa informa informa 2016 [Presen tion in tion in tion in 7:50 PM ce] in source source source Urine data data data Color DK YELLOW No No No May 14 of YELLOW informa informa informa 2017 Urine tion in tion in tion in 7:50 PM source source source data data data Glucose NEG No No No May 14 [Mass/vol informati informati informati 2017 7:50 ume] in on in on in on in PM Urine by source source source Test data data data strip Ketones NEGATIV NEG mg/dL No No May 14 E informa informa 2016 [Presen tion in tion in 7:50 PM ce] in source source Urine data data by Automat ed test strip Mucus NEGATIV NEG No No No May 14 [Presen E informa informa informa 2016 ce] in tion in tion in tion in 7:50 PM Urine source source source sedimen data data data t by Light microsc opy Nitrite NEGATIV NEG No No No May 14 E informa informa informa 2016 [Presen tion in tion in tion in 7:50 PM ce] in source source source Urine data data data by Test strip pH of 5.0 - 8.5 No Normal No May 14 Urine informati informati 2016 7:50 on in on in PM source source data data Protein NEG mg/dL No No May 14 [Mass/vol informati informati 2016 7:50 ume] in on in on in PM Urine by source source Automated data data test strip Erythro NONE 0 rbc/hpf No No May 14 cytes informa informa 2016 [Presen tion in tion in 7:50 PM ce] in source source Urine data data sedimen t by Light microsc opy Specific 1.005 - No Normal No May 14 gravity 1.030 informati informati 2016 7:50 of Urine on in on in PM source source data data Epithel 5-10 0 - 5 #/hpf No No May 14 ial informa informa 2017 cells.s tion in tion in 7:50 PM quamous source source data data [Presen ce] in Urine sedimen t by Microsc opy high power field Urobili 1.0 NEG E.U./dL No No May 14 nogen informa informa 2016 [Presen tion in tion in 7:50 PM ce] in source source Urine data data by Test strip Leukocy [3 O wbc/hpf No No May 14 merlyn wbc/hpf informa informa 2016 [#/volu ; 5 tion in tion in 7:50 PM me] in wbc/hpf source source Urine ] data data Drugs identified in Urine by Screen method Observa Value Referen Units Interpr Notes Date tion ce etation Range Collected by nurse? Y Hold specimen in OE? N Positive urine drug screen samples are stored for 7 days. Contact the Lab if confirmation of positives is needed. Ampheta NEGATIV <1000 ng/mL No No May 14 mine E informa informa 2016 [Presen tion in tion in 7:50 PM ce] in source source Urine data data by Screen method Barbitura <200 ng/mL No No May 14 merlyn informati informati 2016 7:50 [Mass/vol on in on in PM ume] in source source Urine by data data Screen method Benzodiaz 200 ng/mL ng/mL No No May 14 epines informati informati 2016 7:50 [Mass/vol on in on in PM ume] in source source Serum or data data Plasma by Screen method Cocaine <300 ng/g No No May 14 [Mass/vol informati informati 2016 7:50 ume] in on in on in PM Unspecifi source source ed data data specimen Methadone <300 ng/mL No No May 14 informati informati 2016 7:50 [Mass/vol on in on in PM ume] in source source Unspecifi data data ed specimen Opiates <300 ng/mL No No May 14 [Mass/vol informati informati 2016 7:50 ume] in on in on in PM Unspecifi source source ed data data specimen Phencycli <25 ng/mL No No May 14 dine informati informati 2016 7:50 [Mass/vol on in on in PM ume] in source source Unspecifi data data ed specimen 11-Hydr NEGATIV <50 ng/mL No No May 14 oxy E informa informa 2017 delta-9 tion in tion in 7:50 PM source source tetrahy data data drocann abinol [Presen ce] in Unspeci fied specime n Urinalysis dipstick W Reflex Microscopic panel in Urine Observa Value Referen Units Interpr Notes Date tion ce etation Range Collected by nurse? Y Hold specimen in OE? N Appeara CLEAR CLEAR No No No May 14 nce of informa informa informa 2017 Urine tion in tion in tion in 7:50 PM source source source data data data Bilirub NEGATIV NEG No No No May 14 in E informa informa informa 2016 [Presen tion in tion in tion in 7:50 PM ce] in source source source Urine data data data by Test strip Erythro NEGATIV NEG No No No May 14 cytes E informa informa informa 2016 [Presen tion in tion in tion in 7:50 PM ce] in source source source Urine data data data Color DK YELLOW No No No May 14 of YELLOW informa informa informa 2016 Urine tion in tion in tion in 7:50 PM source source source data data data Glucose NEG No No No May 14 [Mass/vol informati informati informati 2016 7:50 ume] in on in on in on in PM Urine by source source source Test data data data strip Ketones NEGATIV NEG mg/dL No No May 14 E informa informa 2016 [Presen tion in tion in 7:50 PM ce] in source source Urine data data by Automat ed test strip Mucus NEGATIV NEG No No No May 14 [Presen E informa informa informa 2016 ce] in tion in tion in tion in 7:50 PM Urine source source source sedimen data data data t by Light microsc opy Nitrite NEGATIV NEG No No No May 14 E informa informa informa 2016 [Presen tion in tion in tion in 7:50 PM ce] in source source source Urine data data data by Test strip pH of 5.0 - 8.5 No Normal No May 14 Urine informati informati 2016 7:50 on in on in PM source source data data Protein NEG mg/dL No No May 14 [Mass/vol informati informati 2016 7:50 ume] in on in on in PM Urine by source source Automated data data test strip Specific 1.005 - No Normal No May 14 gravity 1.030 informati informati 2016 7:50 of Urine on in on in PM source source data data Urobili 1.0 NEG E.U./dL No No May 14 nogen informa informa 2016 [Presen tion in tion in 7:50 PM ce] in source source Urine data data by Test strip Chlamydia/GC Amplification Observa Value Referen Units Interpr Notes Date tion ce etation Range Chlamyd Negativ Negativ No No No Jan 02 ia e e informa informa informa 2017 trachom tion in tion in tion in 1:40 PM atis source source source rRNA data data data [Presen ce] in Unspeci fied specime n by Probe & target amplifi cation method Neisser Negativ Negativ No No Perform Jan 02 ia e e informa informa ed at: 2017 gonorrh tion in tion in CB - 1:40 PM oeae source source [facility] rRNA data data [Pres6 ce] in [address], [facility] [place], [place] Probe & [id number] target 69Lab Directo amplifi r: cation Aamir duarte Amormicheline ti PhD, Phone: [phone] Urinalysis dipstick W Reflex Microscopic panel in Urine Observa Value Referen Units Interpr Notes Date tion ce etation Range Appeara CLEAR CLEAR No No No Jan 02 nce of informa informa informa 2016 Urine tion in tion in tion in 1:40 PM source source source data data data Bacteri 2+ O No No No Jan 02 a informa informa informa 2016 [Presen tion in tion in tion in 1:40 PM ce] in source source source Urine data data data sedimen t by Light microsc opy Bilirub NEGATIV NEG No No No Jan 02 in E informa informa informa 2016 [Presen tion in tion in tion in 1:40 PM ce] in source source source Urine data data data by Test strip Erythro NEGATIV NEG No No No Jan 02 cytes E informa informa informa 2016 [Presen tion in tion in tion in 1:40 PM ce] in source source source Urine data data data Color YELLOW YELLOW No No No Jan 02 of informa informa informa 2016 Urine tion in tion in tion in 1:40 PM source source source data data data Glucose NEG No No No Jan 02 [Mass/vol informati informati informati 2016 1:40 ume] in on in on in on in PM Urine by source source source Test data data data strip Ketones NEGATIV NEG mg/dL No No Jan 02 E informa informa 2016 [Presen tion in tion in 1:40 PM ce] in source source Urine data data by Automat ed test strip Mucus TRACE NEG No Abnorma No Jan 02 [Presen informa l informa 2016 ce] in tion in tion in 1:40 PM Urine source source sedimen data data t by Light microsc opy Nitrite NEGATIV NEG No No No Jan 02 E informa informa informa 2016 [Presen tion in tion in tion in 1:40 PM ce] in source source source Urine data data data by Test strip pH of 5.0 - 8.5 No Normal No Jan 02 Urine informati informati 2017 1:40 on in on in PM source source data data Protein NEG mg/dL No No Jan 02 [Mass/vol informati informati 2016 1:40 ume] in on in on in PM Urine by source source Automated data data test strip Specific 1.005 - No Normal No Jan 02 gravity 1.030 informati informati 2016 1:40 of Urine on in on in PM source source data data Epithel 5-10 0 - 5 #/hpf No No Jan 02 ial informa informa 2016 cells.s tion in tion in 1:40 PM quamous source source data data [Presen ce] in Urine sedimen t by Microsc opy high power field Urobili 0.2 NEG E.U./dL No No Jan 02 nogen informa informa 2016 [Presen tion in tion in 1:40 PM ce] in source source Urine data data by Test strip Leukocy [5 O wbc/hpf No No Jan 02 merlyn wbc/hpf informa informa 2016 [#/volu ; 10 tion in tion in 1:40 PM me] in wbc/hpf source source Urine ] data data Urinalysis dipstick W Reflex Microscopic panel in Urine Observa Value Referen Units Interpr Notes Date tion ce etation Range Appeara CLEAR CLEAR No No No Jan 02 nce of informa informa informa 2016 Urine tion in tion in tion in 1:40 PM source source source data data data Bilirub NEGATIV NEG No No No Jan 02 in E informa informa informa 2016 [Presen tion in tion in tion in 1:40 PM ce] in source source source Urine data data data by Test strip Erythro NEGATIV NEG No No No Jan 02 cytes E informa informa informa 2016 [Presen tion in tion in tion in 1:40 PM ce] in source source source Urine data data data Color YELLOW YELLOW No No No Jan 02 of informa informa informa 2017 Urine tion in tion in tion in 1:40 PM source source source data data data Glucose NEG No No No Jan 02 [Mass/vol informati informati informati 2016 1:40 ume] in on in on in on in PM Urine by source source source Test data data data strip Ketones NEGATIV NEG mg/dL No No Jan 02 E informa informa 2016 [Presen tion in tion in 1:40 PM ce] in source source Urine data data by Automat ed test strip Mucus TRACE NEG No Abnorma No Jan 02 [Presen informa l informa 2016 ce] in tion in tion in 1:40 PM Urine source source sedimen data data t by Light microsc opy Nitrite NEGATIV NEG No No No Jan 02 E informa informa informa 2016 [Presen tion in tion in tion in 1:40 PM ce] in source source source Urine data data data by Test strip pH of 5.0 - 8.5 No Normal No Jan 02 Urine informati informati 2017 1:40 on in on in PM source source data data Protein NEG mg/dL No No Jan 02 [Mass/vol informati informati 2017 1:40 ume] in on in on in PM Urine by source source Automated data data test strip Specific 1.005 - No Normal No Jan 02 gravity 1.030 informati informati 2017 1:40 of Urine on in on in PM source source data data Urobili 0.2 NEG E.U./dL No No Jan 02 nogen informa informa 2016 [Presen tion in tion in 1:40 PM ce] in source source Urine data data by Test strip Urinalysis dipstick W Reflex Microscopic panel in Urine Observa Value Referen Units Interpr Notes Date tion ce etation Range Appeara CLEAR CLEAR No No No Dec 13 nce of informa informa informa 2017 Urine tion in tion in tion in 3:40 PM source source source data data data Bacteri 2+ O No No No Dec 13 a informa informa informa 2016 [Presen tion in tion in tion in 3:40 PM ce] in source source source Urine data data data sedimen t by Light microsc opy Bilirub NEGATIV NEG No No No Dec 13 in E informa informa informa 2016 [Presen tion in tion in tion in 3:40 PM ce] in source source source Urine data data data by Test strip Erythro NEGATIV NEG No No No Dec 13 cytes E informa informa informa 2016 [Presen tion in tion in tion in 3:40 PM ce] in source source source Urine data data data Color YELLOW YELLOW No No No Dec 13 of informa informa informa 2017 Urine tion in tion in tion in 3:40 PM source source source data data data Glucose NEG No No No Dec 13 [Mass/vol informati informati informati 2017 3:40 ume] in on in on in on in PM Urine by source source source Test data data data strip Ketones NEGATIV NEG mg/dL No No Dec 13 E informa informa 2017 [Presen tion in tion in 3:40 PM ce] in source source Urine data data by Automat ed test strip Mucus 1+ NEG No Abnorma No Dec 13 [Presen informa l informa 2016 ce] in tion in tion in 3:40 PM Urine source source sedimen data data t by Light microsc opy Mucus 2+ OCC No No No Dec 13 [Presen informa informa informa 2016 ce] in tion in tion in tion in 3:40 PM Urine source source source sedimen data data data t by Light microsc opy Nitrite NEGATIV NEG No No No Dec 13 E informa informa informa 2016 [Presen tion in tion in tion in 3:40 PM ce] in source source source Urine data data data by Test strip pH of 5.0 - 8.5 No Normal No Dec 13 Urine informati informati 2017 3:40 on in on in PM source source data data Protein NEG mg/dL No No Dec 13 [Mass/vol informati informati 2017 3:40 ume] in on in on in PM Urine by source source Automated data data test strip Specific 1.005 - No Normal No Dec 13 gravity 1.030 informati informati 2017 3:40 of Urine on in on in PM source source data data Epithel 5-10 0 - 5 #/hpf No No Dec 13 ial informa informa 2017 cells.s tion in tion in 3:40 PM quamous source source data data [Presen ce] in Urine sedimen t by Microsc opy high power field Urobili 1.0 NEG E.U./dL No No Dec 13 nogen informa informa 2017 [Presen tion in tion in 3:40 PM ce] in source source Urine data data by Test strip Leukocy [5 O wbc/hpf No No Dec 13 merlyn wbc/hpf informa informa 2016 [#/volu ; 10 tion in tion in 3:40 PM me] in wbc/hpf source source Urine ] data data Urinalysis dipstick W Reflex Microscopic panel in Urine Observa Value Referen Units Interpr Notes Date tion ce etation Range Appeara CLEAR CLEAR No No No Dec 13 nce of informa informa informa 2016 Urine tion in tion in tion in 3:40 PM source source source data data data Bilirub NEGATIV NEG No No No Dec 13 in E informa informa informa 2016 [Presen tion in tion in tion in 3:40 PM ce] in source source source Urine data data data by Test strip Erythro NEGATIV NEG No No No Dec 13 cytes E informa informa informa 2016 [Presen tion in tion in tion in 3:40 PM ce] in source source source Urine data data data Color YELLOW YELLOW No No No Dec 13 of informa informa informa 2016 Urine tion in tion in tion in 3:40 PM source source source data data data Glucose NEG No No No Dec 13 [Mass/vol informati informati informati 2016 3:40 ume] in on in on in on in PM Urine by source source source Test data data data strip Ketones NEGATIV NEG mg/dL No No Dec 13 E informa informa 2016 [Presen tion in tion in 3:40 PM ce] in source source Urine data data by Automat ed test strip Mucus 1+ NEG No Abnorma No Dec 13 [Presen informa l informa 2016 ce] in tion in tion in 3:40 PM Urine source source sedimen data data t by Light microsc opy Nitrite NEGATIV NEG No No No Dec 13 E informa informa informa 2016 [Presen tion in tion in tion in 3:40 PM ce] in source source source Urine data data data by Test strip pH of 5.0 - 8.5 No Normal No Dec 13 Urine informati informati 2017 3:40 on in on in PM source source data data Protein NEG mg/dL No No Dec 13 [Mass/vol informati informati 2016 3:40 ume] in on in on in PM Urine by source source Automated data data test strip Specific 1.005 - No Normal No Dec 13 gravity 1.030 informati informati 2016 3:40 of Urine on in on in PM source source data data Urobili 1.0 NEG E.U./dL No No Dec 13 nogen informa informa 2016 [Presen tion in tion in 3:40 PM ce] in source source Urine data data by Test strip Drugs identified in Urine by Screen method Observa Value Referen Units Interpr Notes Date tion ce etation Range Positive urine drug screen samples are stored for 7 days. Contact the Lab if confirmation of positives is needed. Ampheta NEGATIV <1000 ng/mL No No Dec 13 mine E informa informa 2016 [Presen tion in tion in 3:40 PM ce] in source source Urine data data by Screen method Barbitura <200 ng/mL No No Dec 13 merlyn informati informati 2017 3:40 [Mass/vol on in on in PM ume] in source source Urine by data data Screen method Benzodiaz 200 ng/mL ng/mL No No Dec 13 epines informati informati 2017 3:40 [Mass/vol on in on in PM ume] in source source Serum or data data Plasma by Screen method Cocaine <300 ng/g No No Dec 13 [Mass/vol informati informati 2017 3:40 ume] in on in on in PM Unspecifi source source ed data data specimen Methadone <300 ng/mL No No Dec 13 informati informati 2016 3:40 [Mass/vol on in on in PM ume] in source source Unspecifi data data ed specimen Opiates <300 ng/mL No No Dec 13 [Mass/vol informati informati 2016 3:40 ume] in on in on in PM Unspecifi source source ed data data specimen Phencycli <25 ng/mL No No Dec 13 dine informati informati 2017 3:40 [Mass/vol on in on in PM ume] in source source Unspecifi data data ed specimen 11-Hydr NEGATIV <50 ng/mL No No Dec 13 oxy E informa informa 2017 delta-9 tion in tion in 3:40 PM source source tetrahy data data drocann abinol [Presen ce] in Unspeci fied specime n Comprehensive metabolic 2000 panel in Serum or Plasma Observa Value Referen Units Interpr Notes Date tion ce etation Range Albumin/G 1.1 - 1.8 No Low No Dec 13 lobulin informati informati 2017 2:30 [Mass on in on in PM ratio] in source source Serum or data data Plasma Albumin 3.4 - 5.0 gm/dL Normal No Dec 13 [Mass/vol informati 2017 2:30 ume] in on in PM Serum or source Plasma data Alkaline 46 - 116 U/L Normal No Dec 13 phosphata informati 2017 2:30 se on in PM [Enzymati source c data activity/ volume] in Serum or Plasma Bilirubin 0.2 - 1.0 mg/dL Normal No Dec 13 .total informati 2016 2:30 [Mass/vol on in PM ume] in source Serum or data Plasma Urea 7 - 18 mg/dL Normal No Dec 13 nitrogen informati 2017 2:30 [Mass/vol on in PM ume] in source Serum or data Plasma Calcium 8.5 - mg/dL Normal No Dec 13 [Mass/vol 10.1 informati 2016 2:30 ume] in on in PM Serum or source Plasma data Chloride 98 - 107 mmoL/L Normal No Dec 13 [Moles/vo informati 2016 2:30 lume] in on in PM Serum or source Plasma data Carbon 21.0 - mmoL/L Normal No Dec 13 dioxide, 32.0 informati 2017 2:30 total on in PM [Moles/vo source lume] in data Serum or Plasma Creatinin 0.55 - mg/dL Normal No Dec 13 e 1.02 informati 2016 2:30 [Mass/vol on in PM ume] in source Serum or data Plasma Creatinin 50 - 200 ML/MIN Normal No Dec 13 e renal informati 2016 2:30 clearance on in PM source predicted data by Cockcroft -Gault formula Estimated 59- ML/MIN No REFERENCE Dec 13 informati RANGE: 2017 2:30 glomerula on in >60 PM r source ML/MIN/1. filtratio data 73 SQUARE n rate METERSIf (GF this patient is -A mer[place], then multiply theresult by 1.210. Globulin 1.3 - 3.2 gm/dL High No Dec 13 [Mass/vol informati 2016 2:30 ume] in on in PM Serum source data Glucose 74 - 106 mg/dL High No Dec 13 [Mass/vol informati 2017 2:30 ume] in on in PM Serum or source Plasma data Potassium 3.5 - 5.1 mmoL/L Normal No Dec 13 inform2016 2:30 [Moles/vo on in PM lume] in source Serum or data Plasma Sodium 136 - 145 mmoL/L Normal No Dec 13 [Moles/vo inform2016 2:30 lume] in on in PM Serum or source Plasma data Aspartate 15 - 37 U/L Low No Dec 13 inform2016 2:30 aminotran on in PM sferase source [Enzymati data c activity/ volume] in Serum or Plasma Alanine 12 - 78 U/L Normal No Dec 13 aminotran informati 2016 2:30 sferase on in PM [Enzymati source c data activity/ volume] in Serum or Plasma Protein 6.4 - 8.2 gm/dL Normal No Dec 13 [Mass/vol informati 2016 2:30 ume] in on in PM Serum or source Plasma data CBC W Auto Differential panel in Blood Observa Value Referen Units Interpr Notes Date tion ce etation Range Basophils 0 - 0.2 K/MM3 Normal No Dec 132016 2:30 [#/volume on in PM ] in source Blood by data Automated count Basophils 0.1 - 2.0 % Normal No Dec 13 / informati 2016 2:30 leukocyte on in PM s in source Blood by data Automated count Eosinophi 0.0 - 0.4 K/mm3 Normal No Dec 13 ls informati 2016 2:30 [#/volume on in PM ] in source Blood by data Automated count Eosinophi 0.1 - % Normal No Dec 13 ls/100 12.0 informati 2016 2:30 leukocyte on in PM s in source Blood by data Automated count Granulocy 1.8 - 7.8 K/mm3 Normal No Dec 13 merlyn informati 2016 2:30 [#/volume on in PM ] in source Blood by data Automated count Granulocy 37.0 - % Normal No Dec 13 merlyn/100 80.0 informati 2016 2:30 leukocyte on in PM s in source Blood by data Automated count Hematocri 37.0 - % Normal No Dec 13 t [Volume 47.0 informati 2016 2:30 on in PM Fraction] source of Blood data Hemoglobi 12.2 - g/dL No Dec 13 n 16.2 informati informati 2017 2:30 [Mass/vol on in on in PM ume] in source source Blood data data Lymphocyt 0.7 - 4.5 K/mm3 Normal No Dec 13 es informati 2016 2:30 [#/volume on in PM ] in source Unspecifi data ed specimen by Automated count Lymphocyt 10 - 50.0 % Normal No Dec 13 es informati 2016 2:30 [#/volume on in PM ] in source Unspecifi data ed specimen by Automated count Erythrocy 27 - 31.2 pg Normal No Dec 13 te mean informati 2016 2:30 corpuscul on in PM ar source hemoglobi data n [Entitic mass] Erythrocy 31.8 - g/dl Normal No Dec 13 te mean 35.4 informati 2017 2:30 corpuscul on in PM ar source hemoglobi data n concentra tion [Mass/vol ume] by Automated count Erythrocy 82.2 - fl Normal No Dec 13 te mean 97.8 informati 2016 2:30 corpuscul on in PM ar volume source [Entitic data volume] by Automated count Monocytes 0.1 - 1.0 K/mm3 Normal No Dec 13 informati 2017 2:30 [#/volume on in PM ] in source Blood by data Automated count Monocytes 1.7 - 9.3 % Normal No Dec 13 /100 informati 2017 2:30 leukocyte on in PM s in source Blood by data Automated count Platelet 7.4 - fl Normal No Dec 13 mean 10.4 informati 2017 2:30 volume on in PM [Entitic source volume] data in Blood by Automated count Platelets 142 - 424 K/mm3 Normal No Dec 13 informati 2017 2:30 [#/volume on in PM ] in source Blood data Erythrocy 4.2 - 5.4 M/mm3 Low No Dec 13 merlyn informati 2017 2:30 [#/volume on in PM ] in source Amniotic data fluid Erythrocy 11.5 - % Normal No Dec 13 te 17.5 informati 2017 2:30 distribut on in PM ion width source [Entitic data volume] by Automated count Leukocyte 4.8 - K/MM3 Normal No Dec 13 s 10.8 informati 2016 2:30 [#/volume on in PM ] in source Blood data Comprehensive metabolic 2000 panel in Serum or Plasma Observa Value Referen Units Interpr Notes Date tion ce etation Range Albumin/G 1.1 - 1.8 No Low No Dec 10 lobulin informati informati 2017 [Mass on in on in 11:38 AM ratio] in source source Serum or data data Plasma Albumin 3.4 - 5.0 gm/dL Normal No Dec 10 [Mass/vol informati 2017 ume] in on in 11:38 AM Serum or source Plasma data Alkaline 46 - 116 U/L Normal No Dec 10 phosphata informati 2016 se on in 11:38 AM [Enzymati source c data activity/ volume] in Serum or Plasma Bilirubin 0.2 - 1.0 mg/dL Normal No Dec 10 .total informati 2016 [Mass/vol on in 11:38 AM ume] in source Serum or data Plasma Urea 7 - 18 mg/dL Low No Dec 10 nitrogen informati 2016 [Mass/vol on in 11:38 AM ume] in source Serum or data Plasma Calcium 8.5 - mg/dL Normal No Dec 10 [Mass/vol 10.1 informati 2016 ume] in on in 11:38 AM Serum or source Plasma data Chloride 98 - 107 mmoL/L Normal No Dec 10 [Moles/vo informati 2017 lume] in on in 11:38 AM Serum or source Plasma data Carbon 21.0 - mmoL/L Normal No Dec 10 dioxide, 32.0 informati 2016 total on in 11:38 AM [Moles/vo source lume] in data Serum or Plasma Creatinin 0.55 - mg/dL Normal No Dec 10 e 1.02 informati 2016 [Mass/vol on in 11:38 AM ume] in source Serum or data Plasma Estimated 59- ML/MIN No REFERENCE Dec 10 informati RANGE: 2017 glomerula on in >60 11:38 AM r source ML/MIN/1. filtratio data 73 SQUARE n rate METERSIf (GF this patient is -A merican, then multiply theresult by 1.210. Globulin 1.3 - 3.2 gm/dL High No Dec 10 [Mass/vol informati 2017 ume] in on in 11:38 AM Serum source data Glucose 74 - 106 mg/dL Normal No Dec 10 [Mass/vol informati 2017 ume] in on in 11:38 AM Serum or source Plasma data Potassium 3.5 - 5.1 mmoL/L Normal No Dec 10 informati 2016 [Moles/vo on in 11:38 AM lume] in source Serum or data Plasma Sodium 136 - 145 mmoL/L Normal No Dec 10 [Moles/vo 2016 lume] in on in 11:38 AM Serum or source Plasma data Aspartate 15 - 37 U/L Low No Dec 102016 aminotran on in 11:38 AM sferase source [Enzymati data c activity/ volume] in Serum or Plasma Alanine 12 - 78 U/L Normal No Dec 10 aminotran 2016 sferase on in 11:38 AM [Enzymati source c data activity/ volume] in Serum or Plasma Protein 6.4 - 8.2 gm/dL Normal No Dec 10 [Mass/vol informati 2016 ume] in on in 11:38 AM Serum or source Plasma data Thyroxine (T4) free [Mass/volume] in Serum or Plasma Observa Value Referen Units Interpr Notes Date tion ce etation Range Thyroxine 0.76 - ng/dL Normal No Dec 10 (T4) 1.46 2016 free on in 11:38 AM [Mass/vol source ume] in data Serum or Plasma Thyrotropin [Units/volume] in Serum or Plasma Observa Value Referen Units Interpr Notes Date tion ce etation Range Thyrotrop 0.358 - uIU/ml Normal No Dec 10 in 3.740 2016 [Units/vo on in 11:38 AM lume] in source Serum or data Plasma CBC W Auto Differential panel in Blood Observa Value Referen Units Interpr Notes Date tion ce etation Range Basophils 0 - 0.2 K/MM3 Normal No Dec 102016 [#/volume on in 11:38 AM ] in source Blood by data Automated count Basophils 0.1 - 2.0 % Normal No Dec 10 /100 2016 leukocyte on in 11:38 AM s in source Blood by data Automated count Eosinophi 0.0 - 0.4 K/mm3 Normal No Dec 10 ls 2016 [#/volume on in 11:38 AM ] in source Blood by data Automated count Eosinophi 0.1 - % Normal No Dec 10 ls/100 12.0 2016 leukocyte on in 11:38 AM s in source Blood by data Automated count Granulocy 1.8 - 7.8 K/mm3 Normal No Dec 10 merlyn 2016 [#/volume on in 11:38 AM ] in source Blood by data Automated count Granulocy 37.0 - % Normal No Dec 10 merlyn/100 80.0 informati 2016 leukocyte on in 11:38 AM s in source Blood by data Automated count Hematocri 37.0 - % Normal No Dec 10 t [Volume 47.0 informati 2016 on in 11:38 AM Fraction] source of Blood data Hemoglobi 12.2 - g/dL No No Dec 10 n 16.2 informati informati 2016 [Mass/vol on in on in 11:38 AM ume] in source source Blood data data Lymphocyt 0.7 - 4.5 K/mm3 Normal No Dec 10 es inform2016 [#/volume on in 11:38 AM ] in source Unspecifi data ed specimen by Automated count Lymphocyt 10 - 50.0 % Normal No Dec 10 es inform2016 [#/volume on in 11:38 AM ] in source Unspecifi data ed specimen by Automated count Erythrocy 27 - 31.2 pg High No Dec 10 te mean informati 2016 corpuscul on in 11:38 AM ar source hemoglobi data n [Entitic mass] Erythrocy 31.8 - g/dl Normal No Dec 10 te mean 35.4 inform2016 corpuscul on in 11:38 AM ar source hemoglobi data n concentra tion [Mass/vol ume] by Automated count Erythrocy 82.2 - fl Normal No Dec 10 te mean 97.8 informati 2016 corpuscul on in 11:38 AM ar volume source [Entitic data volume] by Automated count Monocytes 0.1 - 1.0 K/mm3 Normal No Dec 10 inform2016 [#/volume on in 11:38 AM ] in source Blood by data Automated count Monocytes 1.7 - 9.3 % Normal No Dec 10 /100 informati 2017 leukocyte on in 11:38 AM s in source Blood by data Automated count Platelet 7.4 - fl Normal No Dec 10 mean 10.4 informati 2016 volume on in 11:38 AM [Entitic source volume] data in Blood by Automated count Platelets 142 - 424 K/mm3 Normal No Dec 10 inform2016 [#/volume on in 11:38 AM ] in source Blood data Erythrocy 4.2 - 5.4 M/mm3 Normal No Dec 10 merlyn informati 2016 [#/volume on in 11:38 AM ] in source Amniotic data fluid Erythrocy 11.5 - % Normal No Dec 10 te 17.5 informati 2017 distribut on in 11:38 AM ion width source [Entitic data volume] by Automated count Leukocyte 4.8 - K/MM3 Normal No Dec 10 s 10.8 informati 2016 [#/volume on in 11:38 AM ] in source Blood data HBsAg Screen Observa Value Referen Units Interpr Notes Date tion ce etation Range Hepatit Negativ Negativ No No Perform Dec 04 is B e e informa informa ed at: 2017 virus tion in tion in CB - 3:16 PM surface source source [facility] Ag data data [Presen [place] ce] in 370 Serum [facility] [id number] Directo r: Aamir gaitan PhD, Phone: [phone] Reagin Ab [Titer] in Serum by RPR Observa Value Referen Units Interpr Notes Date ti ce etation Range Reagin Ab NonRea<1: No No Performed Dec 04 [Titer] 1 informati informati at: CB 2017 3:16 in Serum on in on in - [facility] PM by RPR source source data data [id number] [place], [place] [id number] Land Measurer: Aamir Joseph PhD, Phone: [phone] Rubella virus IgG Ab [Units/volume] in Serum by Immunoassay Observa Value Referen Units Interpr Notes Date ti ce etation Range Rubella Immune index No Non-immun Dec 04 virus IgG >0.99 informati e 2017 3:16 Ab on in <0.90Equi PM [Units/vo source vocal lume] in data 0.90 - Serum by 0.99Immun Immunoass e ay >0.99 Hepatic function 2000 panel in Serum or Plasma Observa Value Referen Units Interpr Notes ti ce etation Range Albumin 3.4 - 5.0 gm/dL Normal No Dec 04 [Mass/vol informati 2016 3:16 ume] in on in PM Serum or source Plasma data Alkaline 46 - 116 U/L Normal No Dec 04 phosphata informati 2016 3:16 se on in PM [Enzymati source c data activity/ volume] in Serum or Plasma Bilirubin 0.0 - 0.2 mg/dL Normal No Dec 04 .direct informati 2016 3:16 [Mass/vol on in PM ume] in source Serum or data Plasma Bilirubin 0 - 0.9 mg/dL Normal No Dec 04 .indirect informati 2016 3:16 on in PM [Mass/vol source ume] in data Serum or Plasma Bilirubin 0.2 - 1.0 mg/dL Normal No Dec 04 .total informati 2016 3:16 [Mass/vol on in PM ume] in source Serum or data Plasma Aspartate 15 - 37 U/L Normal No Dec 04 informati 2016 3:16 aminotran on in PM sferase source [Enzymati data c activity/ volume] in Serum or Plasma Alanine 12 - 78 U/L Normal No Dec 04 aminotran informati 2016 3:16 sferase on in PM [Enzymati source c data activity/ volume] in Serum or Plasma Protein 6.4 - 8.2 gm/dL Normal No Dec 04 [Mass/vol informati 2016 3:16 ume] in on in PM Serum or source Plasma data Blood group antibody screen [Presence] in Serum or Plasma Observa Value Referen Units Interpr Notes Date tion ce etation Range Blood NEGATIV NEGATIV No No No Dec 04 group E E informa informa informa 2016 antibod tion in tion in tion in 3:16 PM y source source source screen data data data [Presen ce] in Serum or Plasma Rh [Type] in Blood Observa Value Referen Units Interpr Notes Date tion ce etation Range Rh POSITIV No No No No Dec 04 [Type] E informa informa informa informa 2016 in tion in tion in tion in tion in 3:16 PM Blood source source source source data data data data ABO group [Type] in Blood Observa Value Referen Units Interpr Notes Date tion ce etation Range ABO AB No No No No Dec 04 group informa informa informa informa 2016 [Type] tion in tion in tion in tion in 3:16 PM in source source source source Blood data data data data CBC W Auto Differential panel in Blood Observa Value Referen Units Interpr Notes Date tion ce etation Range Basophils 0 - 0.2 K/MM3 Normal No Dec 04 informati 2016 3:16 [#/volume on in PM ] in source Blood by data Automated count Basophils 0.1 - 2.0 % Normal No Dec 04 / informati 2016 3:16 leukocyte on in PM s in source Blood by data Automated count Eosinophi 0.0 - 0.4 K/mm3 Normal No Dec 04 ls informati 2016 3:16 [#/volume on in PM ] in source Blood by data Automated count Eosinophi 0.1 - % Normal No Dec 04 ls/100 12.0 informati 2016 3:16 leukocyte on in PM s in source Blood by data Automated count Granulocy 1.8 - 7.8 K/mm3 Normal No Dec 04 merlyn informati 2016 3:16 [#/volume on in PM ] in source Blood by data Automated count Granulocy 37.0 - % Normal No Dec 04 merlyn/100 80.0 informati 2016 3:16 leukocyte on in PM s in source Blood by data Automated count Hematocri 37.0 - % Normal No Dec 04 t [Volume 47.0 informati 2016 3:16 on in PM Fraction] source of Blood data Hemoglobi 12.2 - g/dL No No Dec 04 n 16.2 informati informati 2016 3:16 [Mass/vol on in on in PM ume] in source source Blood data data Lymphocyt 0.7 - 4.5 K/mm3 Normal No Dec 04 es informati 2016 3:16 [#/volume on in PM ] in source Unspecifi data ed specimen by Automated count Lymphocyt 10 - 50.0 % Normal No Dec 04 es inform2016 3:16 [#/volume on in PM ] in source Unspecifi data ed specimen by Automated count Erythrocy 27 - 31.2 pg Normal No Dec 04 te mean informati 2016 3:16 corpuscul on in PM ar source hemoglobi data n [Entitic mass] Erythrocy 31.8 - g/dl Normal No Dec 04 te mean 35.4 informati 2016 3:16 corpuscul on in PM ar source hemoglobi data n concentra tion [Mass/vol ume] by Automated count Erythrocy 82.2 - fl Normal No Dec 04 te mean 97.8 informati 2016 3:16 corpuscul on in PM ar volume source [Entitic data volume] by Automated count Monocytes 0.1 - 1.0 K/mm3 Normal No Dec 04 informati 2016 3:16 [#/volume on in PM ] in source Blood by data Automated count Monocytes 1.7 - 9.3 % Normal No Dec 04 / informati 2017 3:16 leukocyte on in PM s in source Blood by data Automated count Platelet 7.4 - fl Normal No Dec 04 mean 10.4 informati 2017 3:16 volume on in PM [Entitic source volume] data in Blood by Automated count Platelets 142 - 424 K/mm3 Normal No Nov 13 informati 2017 3:16 [#/volume on in PM ] in source Blood data Erythrocy 4.2 - 5.4 M/mm3 Low No Dec 04 merlyn informati 2016 3:16 [#/volume on in PM ] in source Amniotic data fluid Erythrocy 11.5 - % Normal No Dec 04 te 17.5 informati 2017 3:16 distribut on in PM ion width source [Entitic data volume] by Automated count Leukocyte 4.8 - K/MM3 Normal No Dec 04 s 10.8 informati 2016 3:16 [#/volume on in PM ] in source Blood data CHLAMYDIA AND GONORRHEA TESTING Observa Value Referen Units Interpr Notes Date tion ce etation Range COLLECT NA No No No No Sep 9 OR informa informa informa informa 2013 tion in tion in tion in tion in 3:00 PM source source source source data data data data ETHNICI WHITE, No No No No Sep 9 TY NON-HIS informa informa informa informa 2013 PANIC tion in tion in tion in tion in 3:00 PM source source source source data data data data KIT 4-30-13 No No No No Sep 9 EXPIRAT informa informa informa informa 2013 ION tion in tion in tion in tion in 3:00 PM DATE source source source source data data data data SYMPTOM NO No No No No Sep 9 S informa informa informa informa 2013 tion in tion in tion in tion in 3:00 PM source source source source data data data data REASON REVISIT No No No No Sep 30 FOR /ANNUAL informa informa informa informa 2013 REQUEST FAMILY tion in tion in tion in tion in 3:00 PM source source source source PLANNIN data data data data G VISIT SPECIME FEMALE No No No No Sep 9 N ENDOCER informa informa informa informa 2013 SOURCE VICAL tion in tion in tion in tion in 3:00 PM source source source source data data data data PREGNAN NO No No No No Apr 9 T informa informa informa informa 2013 tion in tion in tion in tion in 3:00 PM source source source source data data data data CHART NA No No No No Sep 30 NUMBER informa informa informa informa 2013 tion in tion in tion in tion in 3:00 PM source source source source data data data data Chlamyd CANCEL No No No NEGATIV Sep 30 ia informa informa informa E 2013 trachom tion in tion in tion in RESULT= 3:00 PM atis source source source WITHIN rRNA data data data NORMAL [Presen ce] in LIMITSP Unspeci OSITIVE fied specime RESULT= n by Probe & ABNORMA target LEQUIVO KEITH amplifi RESULT= cation method INDETER MINATEU NSATISF ACTORY RESULT= INVALID Neisser CANCEL No No No NEGATIV Sep 30 ia informa informa informa E 2013 gonorrh tion in tion in tion in RESULT= 3:00 PM oeae source source source WITHIN rRNA data data data NORMAL [Presen ce] in LIMITSP Unspeci OSITIVE fied specime RESULT= n by Probe & ABNORMA target LEQUIVO KEITH amplifi RESULT= cation method INDETER MINATEU NSATISF ACTORY RESULT= INVALID THE APTIMA COMBO 2 ASSAY IS NOT INTENDE D FOR THE EVALUAT ION OF SUSPECT EDSEXUA L ABUSE OR FOR OTHER MEDICO- LEGAL INDICAT IONS. FOR THOSE PATIENT S FORWHOM A FALSE POSITIV E RESULT MAY HAVE ADVERSE PSYCHO- SOCIAL IMPACT, THE CDCRECO MMENDS RETESTI NG. REMARKS DUPLICA No No No \.br\Th Sep 30 TE informa informa informa is 2013 ORDER tion in tion in tion in report 3:00 PM HL source source source contain [id number] data data data s patient informa tion that must be protect ed in accorda nce with the Health Insuran ce Portabi lity and Account ability Act. CHLAMYDIA AND GONORRHEA TESTING Observa Value Referen Units Interpr Notes Date tion ce etation Range COLLECT NA No No No No Sep 30 OR informa informa informa informa 2013 tion in tion in tion in tion in 3:00 PM source source source source data data data data ETHNICI WHITE, No No No No Sep 30 TY NON-HIS informa informa informa informa 2013 PANIC tion in tion in tion in tion in 3:00 PM source source source source data data data data KIT 4-30-13 No No No No Sep 30 EXPIRAT informa informa informa informa 2013 ION tion in tion in tion in tion in 3:00 PM DATE source source source source data data data data SYMPTOM NO No No No No Sep 30 S informa informa informa informa 2013 tion in tion in tion in tion in 3:00 PM source source source source data data data data REASON REVISIT No No No No Sep 30 FOR /ANNUAL informa informa informa informa 2013 REQUEST FAMILY tion in tion in tion in tion in 3:00 PM source source source source PLANNIN data data data data G VISIT SPECIME FEMALE No No No No Sep 30 N ENDOCER informa informa informa informa 2013 SOURCE VICAL tion in tion in tion in tion in 3:00 PM source source source source data data data data PREGNAN NO No No No No Sep 30 T informa informa informa informa 2013 tion in tion in tion in tion in 3:00 PM source source source source data data data data CHART NA No No No No Sep 30 NUMBER informa informa informa informa 2013 tion in tion in tion in tion in 3:00 PM source source source source data data data data Chlamyd CANCEL No No No NEGATIV Sep 30 ia informa informa informa E 2013 trachom tion in tion in tion in RESULT= 3:00 PM atis source source source WITHIN rRNA data data data NORMAL [Presen ce] in LIMITSP Unspeci OSITIVE fied specime RESULT= n by Probe & ABNORMA target LEQUIVO KEITH amplifi RESULT= cation method INDETER MINATEU NSATISF ACTORY RESULT= INVALID Neisser CANCEL No No No NEGATIV Sep 30 ia informa informa informa E 2013 gonorrh tion in tion in tion in RESULT= 3:00 PM oeae source source source WITHIN rRNA data data data NORMAL [Presen ce] in LIMITSP Unspeci OSITIVE fied specime RESULT= n by Probe & ABNORMA target LEQUIVO KEITH amplifi RESULT= cation method INDETER MINATEU NSATISF ACTORY RESULT= INVALID THE APTIMA COMBO 2 ASSAY IS NOT INTENDE D FOR THE EVALUAT ION OF SUSPECT EDSEXUA L ABUSE OR FOR OTHER MEDICO- LEGAL INDICAT IONS. FOR THOSE PATIENT S FORWHOM A FALSE POSITIV E RESULT MAY HAVE ADVERSE PSYCHO- SOCIAL IMPACT, THE CDCRECO MMENDS RETESTI NG. REMARKS DUPLICA No No No \.br\Th Sep 30 TE informa informa informa is 2013 ORDER tion in tion in tion in report 3:00 PM HL source source source contain [id number] data data data s patient informa tion that must be protect ed in accorda nce with the Health Insuran ce Portabi lity and Account ability Act. CHLAMYDIA AND GONORRHEA TESTING Observa Value Referen Units Interpr Notes Date tion ce etation Range COLLECT M. No No No No Sep 30 OR BACK informa informa informa informa 2013 DOCUMENTATION SUPERVISOR tion in tion in tion in tion in 3:00 PM source source source source data data data data ETHNICI WHITE, No No No No Sep 30 TY NON-HIS informa informa informa informa 2013 PANIC tion in tion in tion in tion in 3:00 PM source source source source data data data data KIT -30-2 No No No No Sep 30 EXPIRAT 013 informa informa informa informa 2013 ION tion in tion in tion in tion in 3:00 PM DATE source source source source data data data data SYMPTOM YES No No No No Sep 9 S informa informa informa informa 2013 tion in tion in tion in tion in 3:00 PM source source source source data data data data REASON REVISIT No No No No Sep 30 FOR /ANNUAL informa informa informa informa 2013 REQUEST FAMILY tion in tion in tion in tion in 3:00 PM source source source source PLANNIN data data data data G VISIT SPECIME FEMALE No No No No Sep 30 N ENDOCER informa informa informa informa 2013 SOURCE VICAL tion in tion in tion in tion in 3:00 PM source source source source data data data data PREGNAN NO No No No No Sep 9 T informa informa informa informa 2013 tion in tion in tion in tion in 3:00 PM source source source source data data data data CHART NA No No No No Sep 9 NUMBER informa informa informa informa 2013 tion in tion in tion in tion in 3:00 PM source source source source data data data data Chlamyd NEGATIV No No No NEGATIV Sep 30 ia E informa informa informa E 2013 trachom tion in tion in tion in RESULT= 3:00 PM atis source source source WITHIN rRNA data data data NORMAL [Presen ce] in LIMITSP Unspeci OSITIVE fied specime RESULT= n by Probe & ABNORMA target LEQUIVO KEITH amplifi RESULT= cation method INDETER MINATEU NSATISF ACTORY RESULT= INVALID Neisser NEGATIV No No No NEGATIV Sep 9 ia E informa informa informa E 2013 gonorrh tion in tion in tion in RESULT= 3:00 PM oeae source source source WITHIN rRNA data data data NORMAL [Presen ce] in LIMITSP Unspeci OSITIVE fied specime RESULT= n by Probe & ABNORMA target LEQUIVO KEITH amplifi RESULT= cation method INDETER MINATEU NSATISF ACTORY RESULT= INVALID THE APTIMA COMBO 2 ASSAY IS NOT INTENDE D FOR THE EVALUAT ION OF SUSPECT EDSEXUA L ABUSE OR FOR OTHER MEDICO- LEGAL INDICAT IONS. FOR THOSE PATIENT S FORWHOM A FALSE POSITIV E RESULT MAY HAVE ADVERSE PSYCHO- SOCIAL IMPACT, [facility] MMENDS RETESTI NG.\.br \This report contain s patient informa tion that must be protect ed in accorda nce with the Health Insuran ce Portabi lity and Account ability Act. CHLAMYDIA AND GONORRHEA TESTING Observa Value Referen Units Interpr Notes Date tion ce etation Range COLLECT NA No No No No Sep 30 OR informa informa informa informa 2013 tion in tion in tion in tion in 3:00 PM source source source source data data data data ETHNICI WHITE, No No No No Sep 30 TY NON-HIS informa informa informa informa 2013 PANIC tion in tion in tion in tion in 3:00 PM source source source source data data data data KIT 4-30-13 No No No No Sep 30 EXPIRAT informa informa informa informa 2013 ION tion in tion in tion in tion in 3:00 PM DATE source source source source data data data data SYMPTOM NO No No No No Sep 9 S informa informa informa informa 2013 tion in tion in tion in tion in 3:00 PM source source source source data data data data REASON REVISIT No No No No Sep 30 FOR /ANNUAL informa informa informa informa 2013 REQUEST FAMILY tion in tion in tion in tion in 3:00 PM source source source source PLANNIN data data data data G VISIT SPECIME FEMALE No No No No Sep 30 N ENDOCER informa informa informa informa 2013 SOURCE VICAL tion in tion in tion in tion in 3:00 PM source source source source data data data data PREGNAN NO No No No No Sep 30 T informa informa informa informa 2013 tion in tion in tion in tion in 3:00 PM source source source source data data data data CHART NA No No No No Sep 30 NUMBER informa informa informa informa 2013 tion in tion in tion in tion in 3:00 PM source source source source data data data data Chlamyd Pending No No No No Sep 30 ia informa informa informa informa 2013 trachom tion in tion in tion in tion in 3:00 PM atis source source source source rRNA data data data data [Presen ce] in Unspeci fied specime n by Probe & target amplifi cation method Neisser Pending No No No \.br\Sep 30 ia informa informa informa is 2013 gonorrh tion in tion in tion in report 3:00 PM oeae source source source contain rRNA data data data s [Presen patient ce] in Unspeci informa fied tion specime that n by must be Probe & target protect ed in amplifi accorda cation nce method with the Health Insuran ce Portabi lity and Account ability Act. CHLAMYDIA AND GONORRHEA TESTING Observa Value Referen Units Interpr Notes Date tion ce etation Range COLLECT M. No No No No Sep 30 OR BACK informa informa informa informa 2013 DOCUMENTATION SUPERVISOR tion in tion in tion in tion in 3:00 PM source source source source data data data data ETHNICI WHITE, No No No No Sep 30 TY NON-HIS informa informa informa informa 2013 PANIC tion in tion in tion in tion in 3:00 PM source source source source data data data data KIT 04-30-2 No No No No Sep 9 EXPIRAT 013 informa informa informa informa 2013 ION tion in tion in tion in tion in 3:00 PM DATE source source source source data data data data SYMPTOM YES No No No No Apr 9 S informa informa informa informa 2013 tion in tion in tion in tion in 3:00 PM source source source source data data data data REASON REVISIT No No No No Sep 9 FOR /ANNUAL informa informa informa informa 2013 REQUEST FAMILY tion in tion in tion in tion in 3:00 PM source source source source PLANNIN data data data data G VISIT SPECIME FEMALE No No No No Sep 9 N ENDOCER informa informa informa informa 2013 SOURCE VICAL tion in tion in tion in tion in 3:00 PM source source source source data data data data PREGNAN NO No No No No Sep 9 T informa informa informa informa 2013 tion in tion in tion in tion in 3:00 PM source source source source data data data data CHART NA No No No No Sep 9 NUMBER informa informa informa informa 2013 tion in tion in tion in tion in 3:00 PM source source source source data data data data Chlamyd Pending No No No No Sep 30 ia informa informa informa informa 2013 trachom tion in tion in tion in tion in 3:00 PM atis source source source source rRNA data data data data [Presen ce] in Unspeci fied specime n by Probe & target amplifi cation method Neisser Pending No No No \.br\Sep 30 ia informa informa informa is 2013 gonorrh tion in tion in tion in report 3:00 PM oeae source source source contain rRNA data data data s [Presen patient ce] in Unspeci informa fied tion specime that n by must be Probe & target protect ed in amplifi accorda cation nce method with the Health Insuran ce Portabi lity and Account ability Act.
--- OUTSIDE RECORDS SUMMARY | 2017-05-17 02:40 | External Medical Summary Rpt ---
[...] data [Pres6 ce] in [address], [facility] [place], [place] Probe & [id number] target 69Lab Directo amplifi r: cation Aamir duarte Amormicheline ti PhD, Phone: [phone] Urinalysis dipstick W Reflex Microscopic panel in [...] data [Presen [place]6 ce] in 370 Serum [facility] [id number] 69Lab Directo r: Aamir gaitan PhD, Phone: [phone] Reagin Ab [Titer] in Serum by [facility] Observa Value Referen Units Interpr Notes Date ti ce etation Range Reagin Ab NonRea<1: No No Performed Dec 04 [Titer] 1 informati informati at: CB 2017 3:16 in Serum on in on in - [facility] PM by [facility] source source data data [id number] [place], [place] [id number] Production Counter: Aamir Joseph PhD, Phone: [phone] Rubella virus IgG Ab [Units/volume] in [...] 3:00 PM HL source source source contain [id number] data data data s patient informa tion [...] 3:00 PM HL source source source contain [id number] data data data s patient informa tion that must be protect ed in accorda nce with the Health Insuran ce Portabi lity and Account ability Act. [employer]LAMY[employer] GONORRHEA TESTING Observa Value Referen Units Interpr Notes Date tion ce etation Range COLLECT M. No No No No Sep 30 OR BACK informa informa informa informa 2013 [employer] tion in tion in tion in tion [...] MAY HAVE ADVERSE PSYCHO- SOCIAL IMPACT, [facility] NG.\.br \This report contain s [...] OR BACK informa informa informa informa 2013 [employer] tion in tion in tion in tion [...]
[2017-05-17 06:10] LABS: HEMOGLOBIN 12.1 g/dL (12.2-16.2); LYMPH # 3.2 K/mm3 (0.7-4.5)
[2017-05-17 06:21] VITALS: BP 104/62
[2017-05-17 06:29] LABS: ABO BLOOD TYPE AB; AMPHETAMINES/METAMPHETAMINES NEGATIVE ng/mL (<1000); RH BLOOD TYPE POSITIVE
--- NOTE | 2017-05-17 07:45 | LABOR NOTE ---
Laboring Subjective Subjective Date 05/17/17 Time 0743 Subjective: Pt is having regular contractions Laboring Objective Objective Contractions: q 4-5 minutes Cervical dilation: 2-3 Effacement: 50% Station: -3 Membranes are: Artificially ruptured (with thiin meconium) Comment: I ruptured her membranes and there was dark brownish green thin fluid. Fetus monitoring? No Laboring Assessment Assessment Progressing? Yes Cephalopelvic disproportion? No Problem List: 1. demise > 22 weeks, delivered, current hospitalization Laboring Plan Plan Anethesia for epidural? Yes Continue to labor down? Yes Plan for ? No Continue to monitor? No Comment: I have ruptured her membranes and we'll see how she does with oxytocin. She is on 6 hugo-units at this point time. at 0728
[2017-05-17] MEDS ORDERED: HYDROXYZINE 25M25 MG PO (08:03)
[2017-05-17 09:48] LABS: URINE BILIRUBIN - DIPSTICK NEGATIVE (NEG); URINE BLOOD NEGATIVE (NEG)
[2017-05-17 09:58] LABS: URINE SQUAMOUS CELLS OCC #/hpf (0-5)
--- NOTE | 2017-05-17 10:46 | LABOR NOTE ---
Laboring Subjective Subjective Date 05/17/17 Time 1044 Subjective: Pt is having regular contractions Laboring Objective Objective Contractions: q 2-3 minutes Cervical dilation: 4 Effacement: 75% Station: -1 Membranes are: Artificially ruptured Fetus monitoring? No Type: External Laboring Assessment Assessment Progressing? Yes Cephalopelvic disproportion? No Problem List: 1. demise > 22 weeks, delivered, current hospitalization Laboring Plan Plan Anethesia for epidural? Yes Continue to labor down? Yes Plan for ? No Continue to monitor? Yes Start pushing? No at 1040
--- NOTE | 2017-05-17 10:46 | LABOR NOTE ---
Laboring Subjective Subjective Date 05/17/17 Time 1044 Subjective: Pt is having regular contractions Laboring Objective Objective Contractions: q 2-3 minutes Cervical dilation: 4 Effacement: 75% Station: -1 Membranes are: Artificially ruptured Fetus monitoring? No Type: External Laboring Assessment Assessment Progressing? Yes Cephalopelvic disproportion? No Problem List: 1. demise > 22 weeks, delivered, current hospitalization Laboring Plan Plan Anethesia for epidural? Yes Continue to labor down? Yes Plan for ? No Continue to monitor? Yes Start pushing? No at 1043
--- NOTE | 2017-05-17 14:13 | LABOR NOTE ---
Laboring Subjective Subjective Date 05/17/17 Time 1412 Subjective: Pt is having regular contractions Laboring Objective Objective Contractions: q 2-3 minutes Cervical dilation: 8 Effacement: 100% Station: 0 Membranes are: Artificially ruptured Fetus monitoring? No Type: External Laboring Assessment Assessment Progressing? Yes Cephalopelvic disproportion? No Problem List: 1. demise > 22 weeks, delivered, current hospitalization Laboring Plan Plan Anethesia for epidural? Yes Continue to labor down? Yes Plan for ? No at 1413
--- NOTE | 2017-05-17 15:22 | Delivery Note ---
Delivery note Delivery date: 05/17/17 Delivery time: 1456 Anesthesia: Epidural, [place]un [place] Was labor medically induced? Yes Method for inducing labor: Oxytocin Gestational age in weeks: 29 weeks Delivery prior to 39 weeks? Yes Justification for delivery: Demise Sex: male AF: Greenish brown-colored thin LAC or MLE: none Delivery procedure: Normal Delivery Delivery of placenta: spontaneous Clinical note She is a 31-year-old 6 para 4 aborta 1 who was 29 weeks gestational age. She is known to have factor V Leiden and has been taking Lovenox 40 mg daily. She came in to labor and delivery 48 hours ago with feelings of a bulging pain in her vagina. It was not clear at the time whether we were picking up mother's or heart rate tracings. The heart rate was in the 150s but it was coming and going. We ordered an ultrasound at that time was noted that there was no heart rate activity, no flow to the baby. demise was diagnosed. As result of that she was offered induction of labor today. She was started on IV oxytocin had her membranes ruptured. She had greenish brown-colored thin amniotic fluid. She progressed under labor epidural to full dilation and delivered spontaneously a stillborn male child at 2:57 PM in the afternoon of May 17, 2017. Using gentle traction on the cord and countertraction on the fundus I was able to easily deliver the placenta intact. It's not clear whether had a three-vessel cord since it looks quite hydropic and the blood was clotted within the cord. There were no perineal or vaginal lacerations. The estimated blood loss was 200 mL. On examination of the fetus appeared to be normal sized male fetus with normal looking anatomy. There was however an abnormality at the umbilicus and it seemed to be quite stenotic where the cordinserted into the umbilicus. It's not clear whether this was just because the cord itself was quite hydropic and filled with blood clots or this was truly an abnormality. Photographs were taken of this as well as the . at 7842
--- NOTE | 2017-05-17 15:31 | Discharge Summary ---
Discharge Summary Admission date: 05/17/17 Discharge date: 05/17/17 Discharge diagnoses: demise at 29 weeks Clinical note: She is a 31-year-old 6 para 4 aborta 1 who was seen in labor and delivery a couple of days ago. She had an ultrasound that showed demise with no heart rate activity. As result of that she was brought in for induction of labor at term. She is known to be factor V Leiden positive and she had a previous stillbirth at 32 weeks. She has been taking Lovenox 40 mg subcu daily. She also has hepatitis C from her previous drug abuse. She has most recently been taking Subutex. Course in hospital: She was brought in on the morning of 17 May 2017 and started on IV oxytocin. She subsequent had her membranes ruptured and under labor epidural progressed to full dilation. She delivered spontaneously a still born male child at 2:57 PM in the afternoon of May 17, 2017. She says currently deliver the placenta spontaneously and it appeared to be intact. There were no perineal or vaginal lacerations. She has AB positive blood, she is rubella immune and group B streptococcus status was unknown. Plans for ongoing care: She is discharged home to follow-up with me in approximately 2 weeks' time. Discharge medications She will continue with her vitamins and iron. She will restart her Lovenox 40 mg and will take this for the next 6-8 weeks. DC/follow-up instructions She was given the usual instructions with respect to limiting her activity, driving and sexual activity. Condition at discharge Stable and improved at 1530
[2017-05-19 08:35] LABS: Rapid Plasma Reagin, Quant Non Reactive (NonRea<1:1)
[2017-05-20 10:36] LABS: PTT-LA 37.2 sec (0.0-51.9); dRVVT 29.9 sec (0.0-47.0)
[2017-05-20 12:40] LABS: Anticardiolipin Ab,IgA,Qn <9 APL U/mL (0-11); Anticardiolipin Ab,IgG,Qn <9 GPL U/mL (0-14); Anticardiolipin Ab,IgM,Qn <9 MPL U/mL (0-12); Lupus Reflex Interpretation Comment: (.)
[2017-05-20 14:36] LABS: Parvovirus B19, IgM 0.1 index (0.0-0.8)
[2017-05-22 14:40] LABS: Buprenorphine Positive (.); Norbuprenorphine Positive (.)
== END 2017-05-17 19:30 | disposition home or self-care (01) | DRG 775 ==
LOC: OB 02:27
PROVIDERS: Nurse Practitioner Obstetrics & Gynecology
PROC: 10E0XZZ Delivery of Products of Conception, External Approach (ICD-10-PCS; principal; 2017-05-17)
DX: O36.4XX1 Maternal care for intrauterine death, fetus 1 (principal); D68.51 Activated protein C resistance; O99.113 Other diseases of the blood and blood-forming organs and certain disorders involving the immune mechanism complicating pregnancy, third trimester; Z37.1 Single stillbirth; Z3A.29 29 weeks gestation of pregnancy